=== PATIENT | female | born 1950 | race Caucasian/White ===

== ENCOUNTER → 2023-01-26 | Outpatient (CLI) | payer MEDICARE, OTHER | END | disposition home or self-care (01) | LOC: LABPAT 11:15 | PROVIDERS: ATTEND Orthopaedic Surgery | DX: Z01.812 Encounter for preprocedural laboratory examination (principal); M17.12 Unilateral primary osteoarthritis, left knee; Z22.322 Carrier or suspected carrier of Methicillin resistant Staphylococcus aureus | CPT/HCPCS: 87070 ==

== ENCOUNTER 2023-03-14 07:30 | Observation (INO) | payer MEDICARE, OTHER ==
[2023-03-09 09:36] VITALS: BMI 37.8
--- NOTE | 2023-03-13 08:06 | P.HPOR ---
History of Present Illness H&P Date: 03/13/23 Chief Complaint: Left knee pain The patient is a 72-year-old female who presents with progressive left knee pain for the past 2 years worsening recently. She's having pain with weightbearing activities along with getting up from a seated position. She is having night symptoms. She notes stiffness. She's tried medications in addition to a previous injection without much relief. Review of Systems As per HPI Past Medical History Past Medical History: Diabetes Mellitus, Hyperlipidemia, Hypertension, Osteoarthritis (OA), Thyroid Disorder Additional Past Medical History / Comment(s): current anemia- states pcp instructed her to start iron supplement., states recent low blood sugars in the middle of the night - pt will inform her pcp. History of Any Multi-Drug Resistant Organisms: None Reported Past Surgical History: Appendectomy, Cholecystectomy, Heart Catheterization Additional Past Surgical History / Comment(s): idris carpal tunnel, sinus surgery, colonoscopies, heart cath (4 years ago) Past Anesthesia/Blood Transfusion Reactions: No Reported Reaction Past Psychological History: No Psychological Hx Reported Smoking Status: Former smoker Past Alcohol Use History: Occasional Additional Past Alcohol Use History / Comment(s): quit smoking 28 yrs ago, hx of less than 1 ppd, smoked approx 30 years Past Drug Use History: None Reported - Past Family History Mother Family Medical History: COPD Father Family Medical History: COPD Sister(s) Family Medical History: COPD Medications and Allergies Home Medications Medication Instructions Recorded Confirmed Type Acetaminophen [Tylenol Extra 1,000 mg PO HS PRN 03/09/23 03/09/23 History Strength] Atorvastatin Calcium 40 mg PO MOWEFR 03/09/23 03/09/23 History Cholecalciferol [Vitamin D3 (25 50 mcg PO DAILY 03/09/23 03/09/23 History Mcg = 1000 Iu)] Fish Oil/Dha/Epa [Fish Oil 1,200 1,400 each PO DAILY 03/09/23 03/09/23 History mg Fish Oil] Insulin Detemir [Levemir Flexpen] 60 units SQ HS 03/09/23 03/09/23 History Iron Supplement (Unknown Dose) 1 dose PO DIRECTED 03/09/23 History Levothyroxine Sodium [Synthroid] 0.5 tab PO MOWEFR 03/09/23 03/09/23 History Levothyroxine Sodium [Synthroid] 125 mcg PO SUTUTHSA 03/09/23 03/09/23 History Magnesium 250 mg PO DAILY 03/09/23 03/09/23 History Multivit-Min/Iron/Folic/Lutein 1 each PO DAILY 03/09/23 03/09/23 History [Centrum Silver Women Tablet] Ozempic (Unknown Dose) 1 dose PO BROWNE 03/09/23 History Prasterone (Dhea)/Calcium Carb 1 each PO DAILY 03/09/23 03/09/23 History [Dhea 50 mg Tablet] glipiZIDE 5 mg PO DAILY 03/09/23 03/09/23 History lisinopriL [Zestril] 10 mg PO DAILY 03/09/23 03/09/23 History metFORMIN HCL [Glucophage] 1,000 mg PO DAILY 03/09/23 03/09/23 History Allergies Allergy/AdvReac Type Severity Reaction Status Date / Time cephalexin [From Keflex] Allergy Severe turned red Verified 03/09/23 09:38 all over Sulfa (Sulfonamide Allergy Severe turned red Verified 03/09/23 09:38 Antibiotics) all over grass pollen Allergy Unknown Rash/Hives Verified 03/09/23 09:46 adhesive tape AdvReac blisters Verified 03/09/23 09:38 wood/sap Allergy Unknown Rash/Hives Uncoded 03/09/23 09:46 band aids AdvReac Unknown blisters Uncoded 03/09/23 09:38 Physical Examination - Knee left Appearance: effusion Effusion grade: trace Varus alignment in stance: 5 degrees Tenderness with palpation: anterior, medial Pain: throughout ROM Gait: limping ROM: extension: -10 degrees ROM: flexion: 110 degrees Crepitus with motion: Yes Strength: extension: 5/5 Strength: flexion: 5/5 Meniscal tests: medial meniscal tests: positive, medial joint line pain: positive Results The patient is a well-developed well-nourished female, approximately 5 foot 4, 220 pounds of endomorphic habitus. HEENT exam is nonfocal, neck is supple. She has painless passive motion of her left hip. Straight leg raise is negative. Her distal neurovascular exam appears intact in the left lower extremity. Assessment and Plan Assessment: Left knee severe medial and patellofemoral compartment osteoarthrosis Jrl-[id number]-khdiawosi diabetes ObesityBMI 37.76 Plan: I talked to the patient with regarding her condition along with treatment options. She is having significant pain and limitation secondary to her left knee osteoarthrosis despite conservative measures. After a thorough discussion she opts to proceed with surgery. We'll plan to proceed with left total knee arthroplasty. We will institute DVT prophylaxis postoperatively.
[~2023-03-14 07:30] MED LIST: ACETAMINOPHEN TAB 500 MG TAB PO PRN; DEXAMETHASONE SOD PHOSPHATE 4 MG/ML 1 ML VIAL IV ONE; HYDROmorphone 0.5 MG/0.5 ML SYRINGE IVP PRN; LIDOCAINE 1% (10MG/ML) FOR IV START INTRADERMA PRN; MELOXICAM 7.5 MG TAB PO PRN; ONDANSETRON 4 MG/2 ML VIAL IVP ONE; TRANEXAMIC 1,000 MG/100ML-NACL 1,000 MG in SALINE 1 100ML.BAG IVPB PRN
[2023-03-14 08:44] LABS: Glucose,Whole Blood 116 mg/dL (70-110)
[2023-03-14] MEDS ORDERED: fentaNYL (PF) 50 MCG/ML 2 ML AMP IVP ONE (08:53)
[2023-03-14] MEDS ORDERED: MIDAZOLAM 2 MG/2 ML VIAL IVP ONE (08:53)
[2023-03-14] MEDS: LACTATED RINGERS 1,000 ML IV SCH ×2 (09:12→15:52)
[2023-03-14] MEDS ORDERED: ROPIVACAINE 5 MG/ML 30 ML VIAL ONE (09:13)
[2023-03-14] MEDS ORDERED: TRANEXAMIC 1,000 MG/100ML-NACL PREMIX BAG ONE (09:13)
[2023-03-14] MEDS ORDERED: PHENYLEPHRINE 10 MG/ML VIAL ONE (09:13)
[2023-03-14] MEDS ORDERED: fentaNYL (PF) 50 MCG/ML 2 ML AMP ONE (09:13)
[2023-03-14] MEDS ORDERED: PROPOFOL 10 MG/ML 20 ML VIAL IV ONE (09:13)
[2023-03-14] MEDS ORDERED: MIDAZOLAM 2 MG/2 ML VIAL ONE (09:13)
[2023-03-14] MEDS ORDERED: SODIUM CHLORIDE 0.9% (PF) 10 ML VIAL ONE (09:13)
[2023-03-14] MEDS ORDERED: ROPIVACAINE 1,100 MG, SODIUM CHLORIDE 0.9% 500 ML 330 ML, EMPTY PAIN BALL 1 EACH MISCELLANE PRN ×2 (09:19)
--- NOTE | 2023-03-14 09:21 | P.ANPRN ---
Procedure Note - Anesthesia - Nerve Block Performed Left Adductor Canal Time Out Performed: Yes (08:53) Date of Procedure: 03/14/23 Procedure Start Time: : Procedure Stop Time: :59 Location of Patient: PreOp Indication: Acute Post-Operative Pain, Requested by Surgeon (Dr Nava) Sedation Type: Sedate with meaningful contact maintained Preparation: Sterile Prep, Sterile Dressing Position: Supine Catheter: Indwelling Needle Types: Pajunk Needle Gauge: 21 Ultrasound used to visualize needle placement: Yes Ultrasound used to observe medication spread: Yes Injectate: 0.5% Ropivacaine (see comment for volume) (20cc) Blood Aspirated: No Pain Paresthesia on Injection Noted: No Resistance on Injection: Normal Image Stored and Saved: Yes Events: Uneventful and Well Tolerated
--- NOTE | 2023-03-14 09:54 | P.ANPRN ---
Procedure Note - Anesthesia - Nerve Block Performed Left iPack Date of Procedure: 03/14/23 Procedure Start Time: 08:30 Procedure Stop Time: 08:34 Location of Patient: PreOp Indication: Acute Post-Operative Pain, Requested by Surgeon (Dr Nava) Sedation Type: Sedate with meaningful contact maintained Preparation: Sterile Prep Position: Supine Catheter: None Needle Types: Pajunk Needle Gauge: 21 Ultrasound used to visualize needle placement: Yes Ultrasound used to observe medication spread: Yes Injectate: 0.5% Ropivacaine (see comment for volume) (15cc +5cc PF Normal saline) Blood Aspirated: No Pain Paresthesia on Injection Noted: No Resistance on Injection: Normal Image Stored and Saved: Yes Events: Uneventful and Well Tolerated
[2023-03-14] MEDS ORDERED: ceFAZolin 1,000 MG in SODIUM CHLORIDE 0.9% 1,000 ML IRRIGATION ONE (10:03)
[2023-03-14] MEDS ORDERED: LACTATED RINGERS 1,000 ML IV ONE (10:30)
[2023-03-14] MEDS ORDERED: NALOXONE 0.4 MG/ML 1 ML VIAL IV PRN (11:15)
[2023-03-14] MEDS ORDERED: MAGNESIUM HYDROXIDE 2,400 MG/30 ML CUP PO PRN (11:15)
[2023-03-14] MEDS ORDERED: HYDROcodone/APAP 5-325MG 1 EACH TAB PO PRN (11:15)
[2023-03-14] MEDS ORDERED: HYDROmorphone 0.5 MG/0.5 ML SYRINGE IVP PRN (11:15)
[2023-03-14 11:34] LABS: Glucose,Whole Blood 124 mg/dL (70-110)
--- NOTE | 2023-03-14 11:34 | P.OP ---
Date of Procedure: 03/14/23 Preoperative Diagnosis: Left knee severe tricompartmental osteoarthrosis Postoperative Diagnosis: Same Procedure(s) Performed: Left total knee arthroplastycementedcruciate retaining Implants: Depuy Attune size 6 narrow cemented femoral component, size 5 cemented tibial component, 11 mm articular surface, 35 mm cemented patellar component. This is a cruciate retaining implant. Anesthesia: regional, spinal Surgeon: Paramjit Nava Relief Cook #1: Curly Cox Estimated Blood Loss (ml): 50 Pathology: other (Bone fragments) Condition: stable Disposition: PACU Indications for Procedure: The patient is a 72-year-old female who presents with progressive left knee pain secondary osteoarthrosis despite conservative measures. A discussion of the risks and benefits of operative intervention versus continued conservative measures was made with patient. She opted to proceed with surgery. Operative risks to include infection, neurovascular injury, development of blood clots, fracture, possible component loosening/failure and need for subsequent procedures was discussed. Informed consent was obtained. Operative Findings: As below Description of Procedure: The patient was brought to the operating room, and after induction of spinal anesthesia the left lower extremity was prepped and draped in a normal fashion. The tourniquet was inflated to 270 mmHg. A longitudinal incision extending 3 finger breaths above the superior pole of the patella extending to the medial aspect the tibial tubercle was then made. The skin and subcutaneous tissues were divided sharply. Electrocautery was used for hemostasis. A medial parapatellar arthrotomy was then performed. The medial soft tissues to include the superficial and deep portions of the medial collateral ligament as well as the medial hamstring tendons were elevated subperiosteally. The proximal medial tibia osteophytes were carefully removed. The patella was everted. The knee was flexed. A portion of the retropatellar fat pad was excised sharply. The anterior cruciate ligament was sacrificed. A starting hole was made in the distal femur 1 cm anterior to the posterior cruciate origin. An intramedullary femoral guide was gently inserted planning on 5 valgus distal cut with 9 mm distal resection. The cutting block was pinned in place. The distal cut was then made. The posterior referencing sizing guide was utilized. 3 of external rotation was built into the system and verified off the trans- epicondylar axis and the posterior condyles. I felt size 6 narrow was most appropriate. The cutting block was pinned in place. The anterior, posterior, and chamfer cuts were then made. The bone fragments were removed. A sulcus cut was then made with the appropriate guide. The trial size 6 narrow femoral component was then placed and was fully seated. There was good anterior to posterior and medial to lateral fit. The distal peg holes were then drilled. The trial component was then removed. Attention was then paid towards preparing the proximal tibia. An extra medullary guide was utilized in line with the tibial shaft and second metatarsal distally. A 7 posterior slope was planned. I planned on 2 mm resection from the medial compartment. The cutting block was pinned in place. The proximal tibial cut was then made. The bone was removed in one fragment. The remnants of the medial and lateral menisci were excised the capsule junction with electrocautery. The tibia sized most appropriately at size 5. The posterior osteophytes off the distal femur were carefully removed with a curved osteotome. The trial tibial and femoral components were placed along with a 11 millimeters articular surface. I was able to obtain full flexion and extension with good stability with varus and valgus stress. After several flexion and extension cycles, the tibial rotation was marked with electrocautery in line with the medial one third of the tibial tubercle. Attention was then paid towards preparing the patella. A patella reamer was utilized taking this down to 14 mm of bone stock. A good flush cut was made. The patella sized most appropriately at 11 millimeters. The peg holes were then drilled. The trial component was placed. The knee was taken through a range of motion. I had good patellofemoral tracking with no hands technique. The trial components were then removed. The tibia was prepared in the appropriate rotation with appropriate drill and keel punch. The flexion and extension gaps were checked and felt to be symmetric. The bony surfaces were prepared with pulsatile lavage and dried. The deep tibial component was then cemented in place and was fully seated. Excess cement was removed. The femoral component was cemented in place and was fully seated. Again excess cement was removed. The trial 11 millimeters surface was then inserted in the knee was put in full extension. The patella component was cemented in place. After the cement had sufficiently hardened, the knee was again taken through a range of motion. Again there was good stability in flexion and extension with varus and valgus stress. The trial articular surface was then removed. The final articular surface was placed and was impacted. Care was taken to avoid any soft tissue interposition. Pulsatile lavage was again utilized. The tourniquet was deflated with approximately 60 minutes total tourniquet time. There was minimal drainage therefore a deep drain was not placed. The medial parapatellar arthrotomy was then closed with #2 Ethibond suture. The subcutaneous tissues were reapproximated interrupted 2-0 Vicryl sutures. The skin was reapproximated with 3-0 subarticular strata fix suture. Skin tape and adhesive was applied. A sterile dressing was applied. The patient was then awoken from sedation and transferred to recovery room in good condition. Blood loss was estimated at 50 milliliters. No complications were incurred. Sponge and needle counts were correct at the end the case. Curly VELASQUEZ assisted during the major components this case to include exposure, bone resection, and implantation.
--- NOTE | 2023-03-14 11:52 | XR ---
EXAMINATION TYPE: XR knee limited LT DATE OF EXAM: 03/14/2023 CLINICAL HISTORY: Postoperative evaluation Two views of the left knee are submitted. Identified are changes of total knee arthroplasty with fem oral and tibial components appearing well seated. Postsurgical soft tissue changes are noted. Align ment is anatomic.
[2023-03-14] MEDS: HYDROmorphone 0.5 MG/0.5 ML SYRINGE IVP PRN ×2 (15:53→23:19)
[2023-03-14 16:56] LABS: Glucose,Whole Blood 210 mg/dL (70-110)
[2023-03-14] MEDS ORDERED: DEXTROSE 50% SYRINGE 50 ML IVP PRN ×2 (19:20)
[2023-03-14] MEDS ORDERED: LEVOTHYROXINE 125 MCG TAB PO SCH (19:30)
[2023-03-14 20:32] LABS: Glucose,Whole Blood 327 mg/dL (70-110)
[2023-03-14] MEDS: INSULIN ASPART (NovoLOG) 100 UNIT/ML VIAL SQ SCH (21:00)
[2023-03-14] MEDS ORDERED: INSULIN DETEMIR (LEVEMIR) 100 UNIT/ML SYR SQ SCH ×2 (21:00→23:27)
[2023-03-14] MEDS: HYDROcodone/APAP 7.5-325MG 1 EACH TAB PO PRN (21:01)
[2023-03-14] MEDS: SENNOSIDES-DOCUSATE SODIUM 1 EACH TAB PO SCH (21:01)
[2023-03-15] MEDS: HYDROmorphone 0.5 MG/0.5 ML SYRINGE IVP PRN ×3 (05:12→18:27)
[2023-03-15 05:42] LABS: Glucose,Whole Blood 257 mg/dL (70-110)
[2023-03-15] MEDS: INSULIN ASPART (NovoLOG) 100 UNIT/ML VIAL SQ SCH ×4 (06:31→20:27)
--- NOTE | 2023-03-15 07:17 | P.PN ---
Progress Note - Text Progress Note Date: 03/15/23 Postoperative day # 1 status post total knee arthroplasty, and adductor canal catheter placed for postoperative analgesia, currently at ropivacaine 0.2% 8 mL per hour and continuous infusion, visual analogue scale is 8/10, patient using oral pain medication for breakthrough pain. Assessment and plan= Acute postoperative pain, adductor canal catheter for pain control, pain is not well controlled , lidocaine 1% 10 ML given through the catheter, and will evaluate the patient pain later on to see if this helps or not, if she continued to have pain , then will discuss with the patient the option of replacing the adductor canal cath
[2023-03-15 09:22] LABS: Basophils # (A) 0.03 X 10*3/uL (0.00-0.10); Basophils % (A) 0.3 %; Eosinophils # (A) 0.02 X 10*3/uL (0.04-0.35); Eosinophils % (A) 0.2 %; HGB 11.2 d/dL (12.0-15.0); Lymphocytes # (A) 1.93 X 10*3/uL (0.90-5.00); Lymphocytes % (A) 19.3 %; MCH 25.2 pg (27.0-32.0); MCHC 31.1 d/dL (32.0-37.0); MCV 81.1 FL (80.0-97.0); Mean Platelet Volume 10.8 FL (9.5-12.2); NRBC Per 100 WBC 0 X 10*3/uL (0.00-0.01); Neutrophils # (A) 6.96 X 10*3/uL (1.80-7.70); Neutrophils % (A) 69.7 %; Platelet Count 185 X 10*3/uL (140-440); RBC 4.44 X 10*6/uL (4.10-5.20); RDW 14.7 % (11.5-14.5); WBC 9.99 X 10*3/uL (4.50-10.00)
[2023-03-15] MEDS: HYDROcodone/APAP 7.5-325MG 1 EACH TAB PO PRN ×3 (09:37→20:28)
[2023-03-15] MEDS: lisinopriL 10 MG TAB PO SCH (10:15)
[2023-03-15] MEDS: CHOLECALCIFEROL 25 MCG (1000 IU) TABLET PO SCH (10:16)
[2023-03-15] MEDS: glipiZIDE 5 MG TAB PO SCH (10:16)
[2023-03-15] MEDS: RIVAROXABAN 10 MG TAB PO SCH (10:16)
[2023-03-15 10:48] LABS: Glucose,Whole Blood 333 mg/dL (70-110)
--- NOTE | 2023-03-15 12:27 | P.PN ---
Subjective Progress Note Date: 03/15/23 Principal diagnosis: Status post left total knee arthroplasty Patient evaluated today at bedside, she is resting in her hospital bed, her is present bedside. She does admit to some increasing pain, she has been utilizing IV Dilaudid. She denies any headaches, lightheadedness, chest pain or shortness of breath. She was able to ambulate with physical therapy with minimal difficulty. Objective - Vital Signs Vital signs: Vital Signs Temp 98.5 F 03/15/23 07:28 Pulse 76 03/15/23 07:28 Resp 16 03/15/23 07:28 BP 129/67 03/15/23 07:28 Pulse Ox 95 03/15/23 07:28 FiO2 Intake & Output 03/14/23 03/15/23 03/15/23 18:59 06:59 18:59 Intake Total 1751 Output Total 50 Balance 1701 Weight 101.1 kg Intake: IV 1751 Output: Estimated Blood Loss 50 Other: Voiding Method Toilet # Voids 1 1 - Exam Left Lower extremity: Incision is clean, dry, and intact. The exofin fusion tape is in good condition. There is minimal soft tissue swelling and ecchymosis surrounding the medial and lateral aspects of the incision. Calf is soft, no tenderness with palpation. Plantar flexion, dorsiflexion, EHL, FHL are intact. Sensory exam to light touch throughout the extremity is intact, dorsal pedis pulses 2+. - Labs CBC & Chem 7: 03/15/23 05:37 Labs: Abnormal Lab Results - Last 24 Hours (Table) 03/14/23 03/14/23 03/15/23 Range/Units 16:54 20:31 05:37 Hgb (12.0-15.0) d/dL Hct (37.2-46.3) % MCH (27.0-32.0) pg MCHC (32.0-37.0) d/dL RDW (11.5-14.5) % Eosinophils # (0.04-0.35) X 10*3/uL POC Glucose (mg/dL) 210 H 327 H (70-110) mg/dL Hemoglobin A1c 7.8 H (<=6.0) % 03/15/23 03/15/23 03/15/23 Range/Units 05:37 05:41 10:46 Hgb 11.2 L (12.0-15.0) d/dL Hct 36.0 L (37.2-46.3) % MCH 25.2 L (27.0-32.0) pg MCHC 31.1 L (32.0-37.0) d/dL RDW 14.7 H (11.5-14.5) % Eosinophils # 0.02 L (0.04-0.35) X 10*3/uL POC Glucose (mg/dL) 257 H 333 H (70-110) mg/dL Hemoglobin A1c (<=6.0) % Assessment and Plan Assessment: Postoperative day #1 status post left total knee arthroplasty Plan: Pain control, continue with oral medications. Okay to use Dilaudid for breakthrough pain DVT prophylaxis, continue Xarelto 10 mg daily Wound care instructions discussed, this including icing and elevating along with showering Continue On-Q pain catheter Encourage incentive spirometer Medical recommendations Discharge planning: We'll keep patient in hospital additional night for pain control, plan for discharge to home with home healthcare on 03/16/2023 Time with Patient: Less than 30
--- NOTE | 2023-03-15 14:03 | P.CONS ---
History of Present Illness - Reason for Consult Consult date: 03/15/23 Medical management, postop left knee arthroplasty - History of Present Illness This is a pleasant 72-year-old female who was admitted under orthopedic services and underwent left total knee arthroplasty postop day 1. Patient is having extreme amount of pain and has been using only oral medications and does have as needed Dilaudid for severe pain. Patient reports she follows with Dr. Sanford's physician litigation legal assistant Tala in the outpatient setting with a past medical history of hypothyroidism, diabetes mellitus, hyperlipidemia, hypertension, osteoarthritis, former smoker and occasionally uses alcohol socially and denies any other illicit drug use. Patient reports she went to her primary care provider's office for presurgical clearance. Follow-up labs show a hemoglobin A1c of 7.8, blood sugar slightly elevated and CBC within normal limits. Patient is afebrile denies chest pain or shortness of breath. Patient reports she received IV Dilaudid short time ago as having some shivering. Patient is afebrile denies chest pain or shortness of breath. Patient denies any burning or pain with frequency with urination and is urinating no difficulties. Patient is passing gas but has not had a bowel movement yet. Patient did tolerate her breakfast today. Review Of Systems: Constitutional: No fever, no chills, no night sweats. No weight change. No weakness, fatigue or lethargy. No daytime sleepiness. EENT: No headache. No blurred vision or double vision, no loss of vision. No loss of Hearing, no ringing in the ears, no dizziness. No nasal drainage or congestion. No epistaxis. No sore throat. Lungs: No shortness of breath, cough, no sputum production. No wheezing. Cardiovascular: No chest pain, no lower extremity edema. No palpitations. No paroxysmal nocturnal dyspnea. No orthopnea. No lightheadedness or dizziness. No syncopal episodes. Abdominal: No abdominal pain. No nausea, vomiting. No diarrhea. No constipation. No bloody or tarry stools.. No loss of appetite. Genitourinary: No dysuria, increased frequency, urgency. No urinary retention. Musculoskeletal: No myalgias. No muscle weakness, no gait dysfunction, no frequent falls. No back pain. No neck pain. Reports left knee pain Integumentary: No wounds, no lesions. No rash or pruritus. No unusual bruising. No change in hair or nails. Neurologic: No aphasia. No facial droop. No change in mentation. No head injury. No headache. No paralysis. No paresthesia. Psychiatric: No depression. No anxiety. No mood swings. Endocrine: No abnormal blood sugars. No weight change. No excessive sweating or thirst. No cold intolerance. PHYSICAL EXAMINATION: GENERAL: The patient is alert and oriented x4, Well developed, well nourished. Obese HEENT: Pupils are round and equally reacting to light. EOMI. no scleral icterus. No conjunctival pallor. Normocephalic, atraumatic. No pharyngeal erythema. No thyromegaly. CARDIOVASCULAR: S1 and S2 muffled PULMONARY: diminished breath sounds bilaterally with no wheezing or rhonchi noted. ABDOMEN: soft. Nontender on exam. obese. non-distended, normoactive bowel sounds. No palpable organomegaly. MUSCULOSKELETAL: No joint swelling or deformity. EXTREMITIES: No cyanosis, clubbing, or pedal edema. left knee surgical site is dry and intact with ice packs with some swelling and no significant erythema noted NEUROLOGICAL: Gross neurological examination did not reveal any focal deficits. Diffuse weakness SKIN: No rashes. Assessment: Status post left total knee arthroplasty History of diabetes mellitus, type II, insulin-dependent Osteoarthritis history Hypertension history Hyperlipidemia Hypothyroidism Former smoker Obesity with BMI of 38.3 GI prophylaxis DVT prophylaxis Full code Plan: Patient is status post left total knee arthroplasty and was able to work with physical therapy today having some increased pain still requiring IV pain medi cations and will be held overnight for pain control per orthopedics. Patient with incentive spirometer at bedside encourage the patient to continue using at least 10 times every hour while awake Continue on sliding scale and Accu-Cheks before meals and at bedtime Home medications reviewed and resumed as appropriate Encouraged to increase activity as tolerated We will continue to follow with orthopedics during hospitalization. Thank you kindly for this consultation. Discussing possible discharge home with home care in 24 hours. The impression and plan of care has been dictated by Natalie Traylor, nurse practitioner as directed. Dr. Anca MD I have performed a history and examination and MDM of this patient, discussed the same with the dictator, and agree with the dictator's assessment and plan as written ,documented as a scribe. Based on total visit time, I have performed more than 50% of the visit. Any additional findings or plans will be noted. Past Medical History Past Medical History: Diabetes Mellitus, Hyperlipidemia, Hypertension, Osteoarthritis (OA), Thyroid Disorder Additional Past Medical History / Comment(s): current anemia- states pcp instructed her to start iron supplement., states recent low blood sugars in the middle of the night - pt will inform her pcp. History of Any Multi-Drug Resistant Organisms: None Reported Past Surgical History: Appendectomy, Cholecystectomy, Heart Catheterization, Joint Replacement Additional Past Surgical History / Comment(s): idris carpal tunnel, sinus surgery, colonoscopies, heart cath (4 years ago) Past Anesthesia/Blood Transfusion Reactions: No Reported Reaction Past Psychological History: No Psychological Hx Reported Smoking Status: Former smoker Past Alcohol Use History: Occasional Additional Past Alcohol Use History / Comment(s): quit smoking 28 yrs ago, hx of less than 1 ppd, smoked approx 30 years Past Drug Use History: None Reported - Past Family History Mother Family Medical History: COPD Father Family Medical History: COPD Sister(s) Family Medical History: COPD Medications and Allergies Home Medications Medication Instructions Recorded Confirmed Type Acetaminophen [Tylenol Extra 1,000 mg PO HS PRN 03/09/23 03/09/23 History Strength] Atorvastatin Calcium 40 mg PO MOWEFR 03/09/23 03/09/23 History Cholecalciferol [Vitamin D3 (25 50 mcg PO DAILY 03/09/23 03/09/23 History Mcg = 1000 Iu)] Fish Oil/Dha/Epa [Fish Oil 1,200 1,400 each PO DAILY 03/09/23 03/09/23 History mg Fish Oil] Insulin Detemir [Levemir Flexpen] 60 units SQ HS 03/09/23 03/09/23 History Iron Supplement (Unknown Dose) 1 dose PO DIRECTED 03/09/23 03/14/23 History Levothyroxine Sodium [Synthroid] 0.5 tab PO MOWEFR 03/09/23 03/09/23 History Levothyroxine Sodium [Synthroid] 125 mcg PO SUTUTHSA 03/09/23 03/09/23 History Magnesium 250 mg PO DAILY 03/09/23 03/09/23 History Multivit-Min/Iron/Folic/Lutein 1 each PO DAILY 03/09/23 03/09/23 History [Centrum Silver Women Tablet] Ozempic (Unknown Dose) 1 dose PO BROWNE 03/09/23 03/14/23 History Prasterone (Dhea)/Calcium Carb 1 each PO DAILY 03/09/23 03/09/23 History [Dhea 50 mg Tablet] glipiZIDE 5 mg PO DAILY 03/09/23 03/09/23 History lisinopriL [Zestril] 10 mg PO DAILY 03/09/23 03/09/23 History metFORMIN HCL [Glucophage] 1,000 mg PO DAILY 03/09/23 03/09/23 History Allergies Allergy/AdvReac Type Severity Reaction Status Date / Time cephalexin [From Keflex] Allergy Severe turned red Verified 03/14/23 08:11 all over Sulfa (Sulfonamide Allergy Severe turned red Verified 03/14/23 08:11 Antibiotics) all over grass pollen Allergy Unknown Rash/Hives Verified 03/14/23 08:11 adhesive tape AdvReac blisters Verified 03/14/23 08:11 wood/sap Allergy Unknown Rash/Hives Uncoded 03/14/23 08:11 band aids AdvReac Unknown blisters Uncoded 03/14/23 08:11 Physical Exam Vitals: Vital Signs Temp Pulse Pulse Resp BP BP Pulse Ox 03/15/23 07:28 98.5 F 76 16 129/67 95 03/15/23 01:35 98.1 F 75 18 118/69 94 L 03/14/23 19:40 97.8 F 97 18 122/52 97 03/14/23 14:03 97.9 F 71 18 149/80 99 03/14/23 13:45 70 18 156/72 99 03/14/23 13:15 69 15 137/67 100 03/14/23 13:00 62 17 139/65 97 03/14/23 12:45 62 15 139/65 95 03/14/23 12:30 62 16 147/70 95 03/14/23 12:09 63 16 139/66 95 03/14/23 11:54 60 16 150/63 100 03/14/23 11:39 60 16 142/66 100 03/14/23 11:24 97.4 F L 64 16 131/60 99 Intake and Output 03/14/23 03/15/23 03/15/23 22:59 06:59 14:59 Other: Voiding Method Toilet # Voids 1 1 Weight 101.1 kg Results CBC & Chem 7: 03/15/23 05:37 Labs: Abnormal Lab Results - Last 24 Hours (Table) 03/14/23 03/14/23 03/14/23 Range/Units 11:31 16:54 20:31 POC Glucose (mg/dL) 124 H 210 H 327 H (70-110) mg/dL 03/15/23 Range/Units 05:41 POC Glucose (mg/dL) 257 H (70-110) mg/dL
[2023-03-15 16:55] LABS: Glucose,Whole Blood 225 mg/dL (70-110)
[2023-03-15] MEDS ORDERED: LEVOTHYROXINE 125 MCG TAB PO SCH (19:17)
[2023-03-15] MEDS ORDERED: ATORVASTATIN 40 MG TAB PO SCH (19:17)
[2023-03-15 20:21] LABS: Glucose,Whole Blood 267 mg/dL (70-110)
[2023-03-15] MEDS: SENNOSIDES-DOCUSATE SODIUM 1 EACH TAB PO SCH (20:28)
[2023-03-15] MEDS ORDERED: INSULIN DETEMIR (LEVEMIR) 100 UNIT/ML SYR SQ SCH (21:00)
[2023-03-15] MEDS: LACTATED RINGERS 1,000 ML IV SCH (21:37)
[2023-03-16] MEDS: HYDROmorphone 0.5 MG/0.5 ML SYRINGE IVP PRN ×2 (00:32→08:49)
[2023-03-16] MEDS: HYDROcodone/APAP 7.5-325MG 1 EACH TAB PO PRN ×2 (05:20→13:12)
[2023-03-16 05:54] LABS: Glucose,Whole Blood 211 mg/dL (70-110)
[2023-03-16] MEDS: INSULIN ASPART (NovoLOG) 100 UNIT/ML VIAL SQ SCH ×2 (06:21→11:57)
[2023-03-16 07:57] VITALS: RESP 15
[2023-03-16] MEDS: CHOLECALCIFEROL 25 MCG (1000 IU) TABLET PO SCH (08:56)
[2023-03-16] MEDS: lisinopriL 10 MG TAB PO SCH (08:57)
[2023-03-16] MEDS: glipiZIDE 5 MG TAB PO SCH (08:57)
[2023-03-16] MEDS: RIVAROXABAN 10 MG TAB PO SCH (08:57)
--- NOTE | 2023-03-16 09:30 | P.PN ---
Progress Note - Text Progress Note Date: 03/16/23 The patient is postop day #2 status post left total knee replacement. She has an revenue field auditor canal catheter. She complains of anterior and posterior pain around the left knee. Skin entry site around the additive Catheter looks normal with no signs of infection. Continue pain control by a combination of infusion through the Adductor canal catheter and oral/ IV medications for pain.
--- NOTE | 2023-03-16 10:24 | P.PN ---
Subjective Progress Note Date: 03/16/23 Principal diagnosis: Status post left total knee arthroplasty Patient evaluated today at bedside, she is resting in her hospital bed. Patient is doing a little bit better today with pain control. She denies any headaches, lightheadedness, chest pain or shortness of breath. She was able to ambulate with physical therapy with minimal difficulty. Objective - Vital Signs Vital signs: Vital Signs Temp 98.6 F 03/16/23 07:57 Pulse 82 03/16/23 07:57 Resp 15 03/16/23 07:57 BP 148/71 03/16/23 07:57 Pulse Ox 94 L 03/16/23 07:57 FiO2 Intake & Output 03/15/23 03/16/23 03/16/23 18:59 06:59 18:59 Intake Total 240 Balance 240 Intake: Oral 240 Other: Voiding Method Toilet # Voids 3 - Exam Left Lower extremity: Incision is clean, dry, and intact. The exofin fusion tape is in good condition. There is minimal soft tissue swelling and ecchymosis surrounding the medial and lateral aspects of the incision. Calf is soft, no tenderness with palpation. Plantar flexion, dorsiflexion, EHL, FHL are intact. Sensory exam to light touch throughout the extremity is intact, dorsal pedis pulses 2+. - Labs CBC & Chem 7: 03/15/23 05:37 Labs: Abnormal Lab Results - Last 24 Hours (Table) 03/15/23 03/15/23 03/15/23 Range/Units 10:46 16:54 20:19 POC Glucose (mg/dL) 333 H 225 H 267 H (70-110) mg/dL 03/16/23 Range/Units 05:52 POC Glucose (mg/dL) 211 H (70-110) mg/dL Assessment and Plan Assessment: Postoperative day #2 status post left total knee arthroplasty Plan: Pain control, plan for discharge home on [place] 7.5 mg/325 mg DVT prophylaxis, continue Xarelto 10 mg daily Wound care instructions discussed, this including icing and elevating along with showering Remove pain catheter prior to discharge Encourage incentive spirometer Medical recommendations Discharge planning: stable for discharge home today Time with Patient: Less than 30
--- NOTE | 2023-03-16 10:28 | P.DS ---
Providers Date of admission: 03/15/23 12:30 Expected date of discharge: 03/16/23 Attending physician: Paramjit Nava Consults: 03/14/23 11:18 Consult Physician Routine Consulting Provider: Tee Jolly Consult Reason/Comments: Medical Management s/p left total knee arthroplasty Do you want consulting provider notified?: Yes Primary care physician: Tamiko Sanford Hospital Course: Date of admission: 03/14/2023 Date of discharge: 03/16/2023 Admission diagnosis: Status post left total knee arthroplasty Discharge diagnosis: Same Attending physician: Dr. Nava Surgical procedures: Brief history: Patient is a a 72-year-old female with a history of progressive primary left knee osteoarthritis. At this point patient has failed conservative treatment measures and has opted to proceed with a elective left total knee arthroplasty. Hospital course: Details of patient's surgery can be found in operative report. Patient tolerated the procedure well and was subsequently transported to orthopedic floor. Patient's orthopeidc and medical care was provided daily. Patient had daily laboratory tests performed for evaluation of overall blood counts. Patient had daily physical therapy to include strengthening range of motion as well as education with walker ambulation. Patient was treated with Xarelto for their postoperative DVT prophylaxis during their inpatient stay. Patient was noted to have a relatively uneventful postoperative course. Patient reported satisfactory pain control with oral pain medications by postoperative day 2. Patient showed satisfactory progress with physical therapy. Patient moved steadily through the program and had no difficulty meeting the goals by postoperative day 2. Given patient's otherwise satisfactory course and having met physical therapy goals, plan is to discharge patient home on postoperative day 2. Discharge condition/disposition: Patient will be discharged home in stable condition. Discharge medications: Instructions are given on resumption of patient's normal daily medications per primary care recommendation, in addition patient will be prescribed [place] 7.5 mg/325 mg. Discharge instructions: 1. Wound care and infection precautions, keep incision dry and covered while showering, no lotions, creams, moisturizers. No soaking, tubs, pools, hottubs. Do not scrub over the incision. 2. Weight-bear with walker / cane until follow-up. 3. Ice and elevate when necessary. Do not exceed 20 minutes per hour with ice pack. 4. Utilize compression sleeve until seen at first follow up appointment. 5. Visiting nursing care. 6. Home physical therapy including home CPM. 7. Pain meds and anticoagulants per prescription. 8. Pain medication has potential to cause constipation. Increase oral fluid and fiber intake. Contact primary care provider if you have not had a bowel movement within 48 hours after discharge 9. No anti-inflammatory medication until discussed at first post operative visit, this including Motrin, Aleve, Mobic, Diclofenac. 10. Follow up in office at 2 weeks postop with Jett Corona PA-C/Curly Garcia 11. Follow up with your primary care doctor 7-10 days after discharge. 12. Contact [facility] with any questions, . Procedures: Left total knee arthroplasty Patient Condition at Discharge: Good Plan - Discharge Summary Discharge Rx Participant: Yes New Discharge Prescriptions: New HYDROcodone/APAP 7.5-325MG [[place] 7.5] 1 each PO Q4HR PRN #42 tab PRN Reason: Pain Continue Levothyroxine Sodium [Synthroid] 125 mcg PO SUTUTHSA Atorvastatin Calcium 40 mg PO MOWEFR Insulin Detemir [Levemir Flexpen] 60 units SQ HS Magnesium 250 mg PO DAILY Multivit-Min/Iron/Folic/Lutein [Centrum Silver Women Tablet] 1 each PO DAILY Levothyroxine Sodium [Synthroid] 0.5 tab PO MOWEFR Cholecalciferol [Vitamin D3 (25 Mcg = 1000 Iu)] 50 mcg PO DAILY Iron Supplement (Unknown Dose) 1 dose PO DIRECTED metFORMIN HCL [Glucophage] 1,000 mg PO DAILY lisinopriL [Zestril] 10 mg PO DAILY glipiZIDE 5 mg PO DAILY Prasterone (Dhea)/Calcium Carb [Dhea 50 mg Tablet] 1 each PO DAILY Fish Oil/Dha/Epa [Fish Oil 1,200 mg Fish Oil] 1,400 each PO DAILY Acetaminophen [Tylenol Extra Strength] 1,000 mg PO HS PRN PRN Reason: Pain Ozempic (Unknown Dose) 1 dose PO BROWNE Discharge Medication List Acetaminophen [Tylenol Extra Strength] 1,000 mg PO HS PRN 03/09/23 [History] Atorvastatin Calcium 40 mg PO MOWEFR 03/09/23 [History] Cholecalciferol [Vitamin D3 (25 Mcg = 1000 Iu)] 50 mcg PO DAILY 03/09/23 [History] Fish Oil/Dha/Epa [Fish Oil 1,200 mg Fish Oil] 1,400 each PO DAILY 03/09/23 [History] Insulin Detemir [Levemir Flexpen] 60 units SQ HS 03/09/23 [History] Iron Supplement (Unknown Dose) 1 dose PO DIRECTED 03/09/23 [History] Levothyroxine Sodium [Synthroid] 0.5 tab PO MOWEFR 03/09/23 [History] Levothyroxine Sodium [Synthroid] 125 mcg PO SUTUTHSA 03/09/23 [History] Magnesium 250 mg PO DAILY 03/09/23 [History] Multivit-Min/Iron/Folic/Lutein [Centrum Silver Women Tablet] 1 each PO DAILY 03/09/23 [History] Ozempic (Unknown Dose) 1 dose PO BROWNE 03/09/23 [History] Prasterone (Dhea)/Calcium Carb [Dhea 50 mg Tablet] 1 each PO DAILY 03/09/23 [History] glipiZIDE 5 mg PO DAILY 03/09/23 [History] lisinopriL [Zestril] 10 mg PO DAILY 03/09/23 [History] metFORMIN HCL [Glucophage] 1,000 mg PO DAILY 03/09/23 [History] HYDROcodone/APAP 7.5-325MG [[place] 7.5] 1 each PO Q4HR PRN #42 tab 03/16/23 [Rx] Follow up Appointment(s)/Referral(s): Curly Cox, ROSEY [PHYSICIAN AS400 DEVELOPER] - 03/30/23 8:50 am [facility],Equipment [NON-STAFF] - As Needed (Continuous Passive Motion knee machine) [facility], [NON-STAFF] - As Needed Patient Instructions/Handouts: Knee Replacement (DC) Activity/Diet/Wound Care/Special Instructions: Orthopedic Discharge Instructions: 1. Wound care and infection precautions, keep incision dry and covered while showering, no lotions, creams, moisturizers. No soaking, pools, hot tubs. Do not scrub over incision. 2. Weight-bear as tolerated with walker / cane until follow-up. 3. Ice and elevate when necessary. Do not exceed 20 minutes per hour with ice pack. 4. Utilize compression sleeve until seen at first follow up appointment. 5. Pain meds and anticoagulants per prescription. 6. Pain medication has potential to cause constipation. Increase oral fluid and fiber intake. Contact primary care provider if you have not had a bowel movement within 48 hours after discharge. 7. No anti-inflammatory medication until discussed at first post operative visit, this including Motrin, Aleve, Mobic, Diclofenac. 8. Follow up in office at 2 weeks postop with Jett Corona PA-C / Curly Cox PA-C 9. Follow up with your primary care doctor 7-10 days after discharge. 10. Contact [facility] with any questions, . Keep incision clean, dry, intact. While showering, cover incision with Saran wrap. Keep fusion tape on until follow-up appointment in office in 2 weeks Discharge Disposition: HOME WITH HOME HEALTH SERVICES
[2023-03-16 11:20] LABS: Glucose,Whole Blood 253 mg/dL (70-110)
[2023-03-16 13:51] VITALS: BP 134/61; PULSE 91; TEMP 98.5
--- NOTE | 2023-03-17 15:32 | P.PN ---
Subjective Progress Note Date: 03/16/23 - Reason for Consult Consult date: 03/15/23 Medical management, postop left knee arthroplasty - History of Present Illness This is a pleasant 72-year-old female who was admitted under orthopedic services and underwent left total knee arthroplasty postop day 1. Patient is having extreme amount of pain and has been using only oral medications and does have as needed Dilaudid for severe pain. Patient reports she follows with Dr. Arron roca's physician diet assistant Tala in the outpatient setting with a past medical history of hypothyroidism, diabetes mellitus, hyperlipidemia, hypertension, osteoarthritis, former smoker and occasionally uses alcohol socially and denies any other illicit drug use. Patient reports she went to her primary care provider's office for presurgical clearance. Follow-up labs show a hemoglobin A1c of 7.8, blood sugar slightly elevated and CBC within normal limits. Patient is afebrile denies chest pain or shortness of breath. Patient reports she received IV Dilaudid short time ago as having some shivering. Patient is afebrile denies chest pain or shortness of breath. Patient denies any burning or pain with frequency with urination and is urinating no difficulties. Patient is passing gas but has not had a bowel movement yet. Patient did tolerate her breakfast today. 03/16/2023 Patient is seen and evaluated in follow-up today status post left total knee arthroplasty pain is better managed today. Patient did require 1 dose of IV pain medications although has been increased on oral and plans on going home today. All medications have been reviewed and resumed and patient to resume bl ood pressure medications. Patient denies any chest pain, shortness of breath, or palpitations. Patient is afebrile. Patient is tolerating diet with no reports of nausea or vomiting noted. Plans are for Homecare patient does have support at home. Patient with incentive spirometer at the bedside encourage the patient to take home and continue using at least 10 times every hour while awake. Patient is medically stable for discharge today and instructed to follow-up with orthopedics as well as her primary care provider in the outpatient setting. Review of systems: Constitutional: No reports of fatigue, fever, or chills Cardiovascular: No reports of chest pain or palpitations Respiratory: No reports of shortness of breath or cough GI: No reports of nausea, vomiting, or diarrhea : No reports of dysuria or retention Neurovascular: reports of generalized weakness and some continued left knee pain All medications have been reviewed PHYSICAL EXAMINATION: GENERAL: The patient is alert and oriented x4, Well developed, well nourished. Obese HEENT: Pupils are round and equally reacting to light. EOMI. no scleral icterus. No conjunctival pallor. Normocephalic, atraumatic. No pharyngeal erythema. No thyromegaly. CARDIOVASCULAR: S1 and S2 muffled PULMONARY: diminished breath sounds bilaterally with no wheezing or rhonchi noted. ABDOMEN: soft. Nontender on exam. obese. non-distended, normoactive bowel sounds. No palpable organomegaly. MUSCULOSKELETAL: No joint swelling or deformity. EXTREMITIES: No cyanosis, clubbing, or pedal edema. left knee surgical site is dry and intact with ice packs with some swelling and no significant erythema noted NEUROLOGICAL: Gross neurological examination did not reveal any focal deficits. Diffuse weakness SKIN: No rashes. Assessment: Status post left total knee arthroplasty History of diabetes mellitus, type II, insulin-dependent Osteoarthritis history Hypertension history Hyperlipidemia Hypothyroidism Former smoker Obesity with BMI of 38.3 GI prophylaxis DVT prophylaxis Full code Plan: Patient is status post left total knee arthroplasty and was able to work with physical therapy today having some improvement in pain and is planning for going home today. Patient with incentive spirometer at bedside encourage the patient to continue using at least 10 times every hour while awake. Patient has been instructed to take home Continue on sliding scale and Accu-Cheks before meals and at bedtime Home medications reviewed and resumed as appropriate. Patient has been instructed to resume blood pressure medications Encouraged to increase activity as tolerated We will continue to follow with orthopedics during hospitalization. Thank you kindly for this consultation. Patient is stable for discharge today. The impression and plan of care has been dictated by Natalie Traylor, nurse practitioner as directed. Dr. Anca MD I have performed a history and examination and MDM of this patient, discussed the same with the dictator, and agree with the dictator's assessment and plan as written ,documented as a scribe. Based on total visit time, I have performed more than 50% of the visit. Any additional findings or plans will be noted. Objective - Vital Signs Vital signs: Vital Signs Temp 98.6 F 03/16/23 07:57 Pulse 82 03/16/23 07:57 Resp 15 03/16/23 07:57 BP 148/71 03/16/23 07:57 Pulse Ox 94 L 03/16/23 07:57 FiO2 Intake & Output 03/15/23 03/16/23 03/16/23 18:59 06:59 18:59 Intake Total 240 Balance 240 Intake: Oral 240 Other: Voiding Method Toilet # Voids 3 - Labs CBC & Chem 7: 03/15/23 05:37 Labs: Abnormal Lab Results - Last 24 Hours (Table) 03/15/23 03/15/23 03/15/23 Range/Units 10:46 16:54 20:19 POC Glucose (mg/dL) 333 H 225 H 267 H (70-110) mg/dL 03/16/23 Range/Units 05:52 POC Glucose (mg/dL) 211 H (70-110) mg/dL
== END 2023-03-16 15:22 | disposition home health service (06) ==
LOC: OR 07:30 → 4SSUR 11:15 → OR 03-15 12:30 → 4SSUR 03-15 12:30
PROVIDERS: ADMIT Orthopaedic Surgery; ATTEND Orthopaedic Surgery
DX: M17.12 Unilateral primary osteoarthritis, left knee (principal); G89.18 Other acute postprocedural pain; I10 Essential (primary) hypertension; E11.65 Type 2 diabetes mellitus with hyperglycemia; D64.9 Anemia, unspecified; E78.5 Hyperlipidemia, unspecified; E03.9 Hypothyroidism, unspecified; E66.9 Obesity, unspecified; Z68.38 Body mass index [BMI] 38.0-38.9, adult; Z79.4 Long term (current) use of insulin; Z79.84 Long term (current) use of oral hypoglycemic drugs; Z79.890 Hormone replacement therapy; Z79.899 Other long term (current) drug therapy; Z88.1 Allergy status to other antibiotic agents; Z88.2 Allergy status to sulfonamides; Z91.048 Other nonmedicinal substance allergy status; Z87.891 Personal history of nicotine dependence; Z90.49 Acquired absence of other specified parts of digestive tract; Z98.890 Other specified postprocedural states; Z82.5 Family history of asthma and other chronic lower respiratory diseases
CPT/HCPCS: 97116; 97161; 64999; 64448; 85025; 83036; 73560; 27447; G0378 ×2; C1713 ×2; C1776; J2250; J1100; J0690 ×2; J2405; J3010; J2795; J2704; J1170 ×3; J2371

== ENCOUNTER 2025-01-24 06:14 | Day surgery (SDC) | payer MEDICARE, OTHER ==
--- NOTE | 2025-01-23 08:24 | P.HPOR ---
History of Present Illness H&P Date: 01/23/25 Chief Complaint: Right thumb and third digit triggering/locking/pain The patient is a 74-year-old female who presents with persistent/progressive locking and catching along with pain in her right thumb and middle fingers. She has tried medications in addition to previous injections with only temporary partial relief. She notes daily pain that limits her. Review of Systems Per HPI Past Medical History Past Medical History: Diabetes Mellitus, Hyperlipidemia, Hypertension, Osteoarthritis (OA), Thyroid Disorder Additional Past Medical History / Comment(s): occasional low blood sugars overnight or in morning- pt states PCP aware. History of Any Multi-Drug Resistant Organisms: None Reported Past Surgical History: Appendectomy, Cholecystectomy, Heart Catheterization, Hysterectomy, Joint Replacement Additional Past Surgical History / Comment(s): idris carpal tunnel, sinus surgery, colonoscopies, left knee replacement Past Anesthesia/Blood Transfusion Reactions: No Reported Reaction Smoking Status: Former smoker - Past Family History Mother Family Medical History: COPD Father Family Medical History: COPD Sister(s) Family Medical History: COPD Medications and Allergies Home Medications Medication Instructions Recorded Confirmed Type Acetaminophen [Tylenol Extra 1,000 mg PO HS PRN 03/09/23 01/21/25 History Strength] Atorvastatin Calcium 40 mg PO MOWEFR 03/09/23 01/21/25 History Cholecalciferol [Vitamin D3 (25 50 mcg PO DAILY 03/09/23 01/21/25 History Mcg = 1000 Iu)] Fish Oil/Dha/Epa [Fish Oil 1,200 1,400 each PO DAILY 03/09/23 01/21/25 History mg Fish Oil] Levothyroxine Sodium [Synthroid] 0.5 tab PO BROWNE 03/09/23 01/21/25 History Levothyroxine Sodium [Synthroid] 125 mcg PO MOTUWETHFRSA 03/09/23 01/21/25 History Magnesium 250 mg PO DAILY 03/09/23 01/21/25 History Multivit-Min/Iron/Folic/Lutein 1 each PO DAILY 03/09/23 01/21/25 History [Centrum Silver Women Tablet] Prasterone (Dhea)/Calcium Carb 1 each PO DAILY 03/09/23 01/21/25 History [Dhea 50 mg Tablet] glipiZIDE 5 mg PO DAILY 03/09/23 01/21/25 History lisinopriL [Zestril] 10 mg PO DAILY 03/09/23 01/21/25 History metFORMIN HCL [Glucophage] 1,000 mg PO DAILY 03/09/23 01/21/25 History Insulin Glargine,Hum.rec.anlog 48 units SQ HS 01/21/25 01/21/25 History [Lantus Solostar Pen] Semaglutide [Ozempic] 1 mg SQ SA 01/21/25 01/21/25 History Allergies Allergy/AdvReac Type Severity Reaction Status Date / Time cephalexin [From Keflex] Allergy Severe turned red Verified 01/21/25 13:39 all over Sulfa (Sulfonamide Allergy Severe turned red Verified 01/21/25 13:39 Antibiotics) all over grass pollen Allergy Unknown Rash/Hives Verified 01/21/25 13:39 adhesive tape AdvReac blisters Verified 01/21/25 13:39 wood/sap Allergy Unknown Rash/Hives Uncoded 01/21/25 13:39 band aids AdvReac Unknown blisters Uncoded 01/21/25 13:39 Physical Examination - Wrist & Hand right Finger catching (Trigger): thumb, long finger Results Patient is a well-developed well-nourished female approximately 5 foot 4, 213 pounds of endomorphic habitus. HEENT exam is nonfocal, neck is supple. She is nontender about the right shoulder elbow and wrist. On examination of the right hand she is tender about the thumb and third digit A1 xochitl. She has palpable triggering. She has mild digital stiffness. Her distal neurovascular exam otherwise appears intact. Assessment and Plan Assessment: Right thumb and middle trigger fingerssymptomatic Plan: I talked to the patient at length regarding her condition along with treatment options. At this point she is quite symptomatic despite conservative measures. After a thorough discussion she opts to proceed with surgery. We will plan to proceed with right thumb and third digit trigger finger release. We will likely perform that as an outpatient procedure utilizing local anesthetic and IV sed ation. Risks and benefits were discussed at length in layman's terms.
[2025-01-24 06:56] VITALS: RESP 16; TEMP 98
[2025-01-24] MEDS: IV FLUID CONTINUATION 1,000 ML IV ONE (06:56)
[2025-01-24] MEDS ORDERED: HYDROmorphone 0.5 MG/0.5 ML SYRINGE IVP PRN (07:00)
[2025-01-24] MEDS ORDERED: MIDAZOLAM 2 MG/2 ML VIAL IV PRN (07:00)
[2025-01-24] MEDS: LACTATED RINGERS 1,000 ML IV SCH (07:02)
[2025-01-24] MEDS: ONDANSETRON 4 MG/2 ML VIAL IVP ONE (07:04)
[2025-01-24] MEDS: DEXAMETHASONE SOD PHOSPHATE 4 MG/ML 1 ML VIAL IV ONE (07:05)
[2025-01-24 07:19] LABS: Glucose,Whole Blood 112 mg/dL (70-110)
[2025-01-24] MEDS: BUPIVACAINE (PF) 0.25% 30 ML VIAL SQ ONE ×2 (07:27→07:53)
[2025-01-24] MEDS ORDERED: PROPOFOL 10 MG/ML 20 ML VIAL IV ONE (07:37)
[2025-01-24] MEDS ORDERED: MIDAZOLAM 2 MG/2 ML VIAL ONE (07:37)
[2025-01-24] MEDS ORDERED: fentaNYL (PF) 50 MCG/ML 2 ML AMP ONE (07:37)
[2025-01-24] MEDS ORDERED: KETAMINE HCL IN 0.9 % NACL 50 MG/5 ML SYRINGE ONE (07:37)
[2025-01-24] MEDS ORDERED: KETOROLAC 15 MG/ML 1 ML VIAL ONE (07:37)
[2025-01-24] MEDS: ceFAZolin 2 GM in DEXTROSE 5% IN WATER 50 ML IVPB PRN (07:41)
--- NOTE | 2025-01-24 08:28 | P.OP ---
Date of Procedure: 01/24/25 Preoperative Diagnosis: Symptomatic right thumb/third digit trigger fingers Postoperative Diagnosis: Same Procedure(s) Performed: Trigger finger release right thumb/third digit Anesthesia: MAC, local Surgeon: Paramjit Nava Estimated Blood Loss (ml): 1 Pathology: none sent Condition: stable Disposition: PACU Indications for Procedure: The patient is a 74-year-old female who presents with persistent/progressive right thumb and third digit triggering despite conservative measures. A discussion of the risks and benefits of operative invention versus continued conservative measures was made with the patient. She opted to proceed with surgery. Operative risks include infection, neurovascular injury, incomplete resolution of symptoms, possible recurrence, possible need for subsequent procedures was discussed. Informed consent was obtained. Operative Findings: As below Description of Procedure: The patient was brought to the operating room and after induction of IV sedation right upper extremity was prepped and draped in normal fashion. The tourniquet was inflated to 270 mmHg. The proposed incision site was outlined with a skin marker just proximal to the distal palmar crease measuring approximate 1 cm in line of the thumb and third digit. 4 mL of quarter percent plain Marcaine was injected into the proposed incision sites. The skin was incised sharply. Subcutaneous tissues were divided bluntly. The neurovascular bundles were gently retracted. The A1 xochitl was then identified and transected under direct visualization proximally and distally of both the thumb and third digit. There was nodularity of the flexor tendon. I felt I had adequate release at this point. The wound was irrigated normal saline. The skin was reapproximated with simple 4-0 nylon sutures. A sterile dressing was applied. The tourniquet was deflated with less than 15 minutes total tourniquet time. Blood loss was estimated at 1 mL. No complications were incurred. Sponge and needle counts were correct at the end of the case. The patient was awoken from sedation and transferred to the recovery room in good condition.
[2025-01-24 08:35] VITALS: BP 127/63; PULSE 74
[2025-01-24 08:38] LABS: Glucose,Whole Blood 122 mg/dL (70-110)
== END 2025-01-24 09:16 | disposition home or self-care (01) ==
LOC: OR 06:14
PROVIDERS: ATTEND Orthopaedic Surgery
DX: M65.311 Trigger thumb, right thumb (principal); M65.331 Trigger finger, right middle finger; I10 Essential (primary) hypertension; E11.9 Type 2 diabetes mellitus without complications; E78.5 Hyperlipidemia, unspecified; E07.9 Disorder of thyroid, unspecified; M19.90 Unspecified osteoarthritis, unspecified site; Z79.890 Hormone replacement therapy; Z79.4 Long term (current) use of insulin; Z79.85 Long-term (current) use of injectable non-insulin antidiabetic drugs; Z79.84 Long term (current) use of oral hypoglycemic drugs; Z79.899 Other long term (current) drug therapy; Z87.891 Personal history of nicotine dependence; Z88.1 Allergy status to other antibiotic agents; Z88.2 Allergy status to sulfonamides; Z91.09 Other allergy status, other than to drugs and biological substances; Z88.8 Allergy status to other drugs, medicaments and biological substances
CPT/HCPCS: 26055 ×2; J2250; J0690; J2405; J3010; J1885; J2704; J0665

== ENCOUNTER 2025-02-24 13:49 | Inpatient (IN) | payer MEDICARE ==
--- NOTE | 2025-02-24 14:03 | P.HPOR ---
History of Present Illness H&P Date: 02/24/25 Chief Complaint: Right hand pain/swelling The patient is a 74-year-old [id number] female who presents with right thumb pain and swelling that began 2 days ago. Previously she had undergone right trigger thumb release 01/24/2025. Initially she did quite well. She has had increasing redness and pain along with swelling over the past couple days. She does not recall a specific trauma. She denies fevers or chills. Review of Systems Per HPI Past Medical History Past Medical History: Diabetes Mellitus, Hyperlipidemia, Hypertension, Osteoarthritis (OA), Thyroid Disorder Additional Past Medical History / Comment(s): current anemia- states pcp instructed her to start iron supplement., states recent low blood sugars in the middle of the night - pt will inform her pcp. History of Any Multi-Drug Resistant Organisms: None Reported Past Surgical History: Appendectomy, Cholecystectomy, Heart Catheterization, Joint Replacement Additional Past Surgical History / Comment(s): idris carpal tunnel, sinus surgery, colonoscopies, heart cath (4 years ago) Past Anesthesia/Blood Transfusion Reactions: No Reported Reaction Past Alcohol Use History: Occasional Additional Past Alcohol Use History / Comment(s): quit smoking 28 yrs ago, hx of less than 1 ppd, smoked approx 30 years - Past Family History Mother Family Medical History: COPD Father Family Medical History: COPD Sister(s) Family Medical History: COPD Medications and Allergies Home Medications Medication Instructions Recorded Confirmed Type Acetaminophen [Tylenol Extra 1,000 mg PO HS PRN 03/09/23 01/24/25 History Strength] Atorvastatin Calcium 40 mg PO MOWEFR 03/09/23 01/24/25 History Cholecalciferol [Vitamin D3 (25 50 mcg PO DAILY 03/09/23 01/21/25 History Mcg = 1000 Iu)] Fish Oil/Dha/Epa [Fish Oil 1,200 1,400 each PO DAILY 03/09/23 01/21/25 History mg Fish Oil] Levothyroxine Sodium [Synthroid] 0.5 tab PO BROWNE 03/09/23 01/24/25 History Levothyroxine Sodium [Synthroid] 125 mcg PO MOTUWETHFRSA 03/09/23 01/24/25 History Magnesium 250 mg PO DAILY 03/09/23 01/21/25 History Multivit-Min/Iron/Folic/Lutein 1 each PO DAILY 03/09/23 01/21/25 History [Centrum Silver Women Tablet] Prasterone (Dhea)/Calcium Carb 1 each PO DAILY 03/09/23 01/21/25 History [Dhea 50 mg Tablet] glipiZIDE 5 mg PO DAILY 03/09/23 01/24/25 History lisinopriL [Zestril] 10 mg PO DAILY 03/09/23 01/24/25 History metFORMIN HCL [Glucophage] 1,000 mg PO DAILY 03/09/23 01/24/25 History Insulin Glargine,Hum.rec.anlog 48 units SQ HS 01/21/25 01/24/25 History [Lantus Solostar Pen] Semaglutide [Ozempic] 1 mg SQ SA 01/21/25 01/21/25 History Acetaminophen-Codeine 300-30mg 1 tab PO Q6H PRN #12 tablet 01/24/25 Rx [Tylenol w/codeine #3] Allergies Allergy/AdvReac Type Severity Reaction Status Date / Time cephalexin [From Keflex] Allergy Severe turned red Verified 01/24/25 06:58 all over Sulfa (Sulfonamide Allergy Severe turned red Verified 01/24/25 06:58 Antibiotics) all over grass pollen Allergy Unknown Rash/Hives Verified 01/24/25 06:58 adhesive tape AdvReac blisters Verified 01/24/25 06:58 wood/sap Allergy Unknown Rash/Hives Uncoded 01/24/25 06:58 band aids AdvReac Unknown blisters Uncoded 01/24/25 06:58 Physical Examination - Wrist & Hand right Location of pain: palmar hand, thumb Results The patient is a well-developed well-nourished female approximately 5 foot 4, 212 pounds of endomorphic habitus. HEENT exam is nonfocal, neck is supple. She is nontender about the right shoulder elbow and wrist. She does have a 3 mm opening over the volar aspect of the right thumb over the palmar crease. There is warmth and erythema over the thenar region as well as the dorsal radial aspe ct of the right hand. She is nontender over the flexor tendons of the lesser digits. She does have diminished range of motion of the right thumb. There is expressible purulence. Assessment and Plan Assessment: Status post right trigger thumb release with cellulitis/thenar abscess. Diabetes Plan: I talked the patient about her condition and at this point recommend starting IV antibiotics. Will start IV Ancef 1 g every 8 hours. We will obtain laboratory studies to include CBC with differential, sed rate, and C-reactive protein. We will keep her n.p.o. after midnight and check her clinically in the morning. If improvement does not occur, we will consider irrigation and debridement.
[2025-02-24] MEDS ORDERED: VANCOMYCIN IV PER PHARMACY 1 EACH MISC MISCELLANE PRN (14:16)
[2025-02-24] MEDS ORDERED: NALOXONE 0.4 MG/ML 1 ML VIAL IV PRN (14:21)
[2025-02-24 15:04] LABS: Basophils # (A) 0.06 10*3/uL (0.00-0.10); Basophils % (A) 0.5 %; Eosinophils # (A) 0.27 10*3/uL (0.04-0.35); Eosinophils % (A) 2.1 %; HCT 40.5 % (37.2-46.3); HGB 13.1 g/dL (12.0-15.0); Lymphocytes # (A) 1.63 10*3/uL (0.90-5.00); Lymphocytes % (A) 12.4 %; MCH 25.7 pg (27.0-32.0); MCHC 32.3 g/dL (32.0-37.0); MCV 79.6 fL (80.0-97.0); Monocytes # (A) 0.95 10*3/uL (0.20-1.00); Monocytes % (A) 7.2 %; Neutrophils # (A) 10.16 10*3/uL (1.80-7.70); Neutrophils % (A) 77.5 %; Platelet Count 217 10*3/uL (140-440); RBC 5.09 10*6/uL (4.10-5.20); RDW 14.5 % (11.5-14.5); WBC 13.11 10*3/uL (4.50-10.00)
--- NOTE | 2025-02-24 15:27 | ED ---
General Adult HPI - General Chief complaint: Skin/Abscess/Foreign Body Stated complaint: R hand swelling Time Seen by Provider: 02/24/25 14:20 Source: patient, family Mode of arrival: ambulatory Limitations: no limitations - History of Present Illness Initial comments: Dictation was produced using [employer] dictation software. please excuse any grammatical, word or spelling errors. Chief Complaint: 74-year-old female presents to the ER for admission History of Present Illness: Patient 74-year-old female sent in from Ortho clinic. Patient had surgery recently was seen at a follow-up appointment with orthopedic surgery. Allegedly had surgical trigger point injection performed by Dr. Nava. She was told to come to the ER to be directly admitted for concerns of surgical infection. No constitutional symptoms. The ROS documented in this emergency department record has been reviewed and confirmed by me. Those systems with pertinent positive or negative responses have been documented in the HPI. All other systems are other negative and/or n oncontributory. - Related Data Home Medications Medication Instructions Recorded Confirmed Acetaminophen [Tylenol Extra 1,000 mg PO HS PRN 03/09/23 01/24/25 Strength] Atorvastatin Calcium 40 mg PO MOWEFR 03/09/23 01/24/25 Cholecalciferol [Vitamin D3 (25 50 mcg PO DAILY 03/09/23 01/21/25 Mcg = 1000 Iu)] Fish Oil/Dha/Epa [Fish Oil 1,200 1,400 each PO DAILY 03/09/23 01/21/25 mg Fish Oil] Levothyroxine Sodium [Synthroid] 0.5 tab PO BROWNE 03/09/23 01/24/25 Levothyroxine Sodium [Synthroid] 125 mcg PO MOTUWETHFRSA 03/09/23 01/24/25 Magnesium 250 mg PO DAILY 03/09/23 01/21/25 Multivit-Min/Iron/Folic/Lutein 1 each PO DAILY 03/09/23 01/21/25 [Centrum Silver Women Tablet] Prasterone (Dhea)/Calcium Carb 1 each PO DAILY 03/09/23 01/21/25 [Dhea 50 mg Tablet] glipiZIDE 5 mg PO DAILY 03/09/23 01/24/25 lisinopriL [Zestril] 10 mg PO DAILY 03/09/23 01/24/25 metFORMIN HCL [Glucophage] 1,000 mg PO DAILY 03/09/23 01/24/25 Insulin Glargine,Hum.rec.anlog 48 units SQ HS 01/21/25 01/24/25 [Lantus Solostar Pen] Semaglutide [Ozempic] 1 mg SQ SA 01/21/25 01/21/25 Previous Rx's Medication Instructions Recorded Acetaminophen-Codeine 300-30mg 1 tab PO Q6H PRN #12 tablet 01/24/25 [Tylenol w/codeine #3] Allergies Allergy/AdvReac Type Severity Reaction Status Date / Time cephalexin [From Keflex] Allergy Severe turned red Verified 01/24/25 06:58 all over Sulfa (Sulfonamide Allergy Severe turned red Verified 01/24/25 06:58 Antibiotics) all over grass pollen Allergy Unknown Rash/Hives Verified 01/24/25 06:58 adhesive tape AdvReac blisters Verified 01/24/25 06:58 wood/sap Allergy Unknown Rash/Hives Uncoded 01/24/25 06:58 band aids AdvReac Unknown blisters Uncoded 01/24/25 06:58 Review of Systems ROS Statement: Those systems with pertinent positive or pertinent negative responses have been documented in the HPI. ROS Other: All systems not noted in ROS Statement are negative. Past Medical History Past Medical History: Diabetes Mellitus, Hyperlipidemia, Hypertension, Osteoarthritis (OA), Thyroid Disorder Additional Past Medical History / Comment(s): current anemia- states pcp instructed her to start iron supplement., states recent low blood sugars in the middle of the night - pt will inform her pcp. History of Any Multi-Drug Resistant Organisms: None Reported Past Surgical History: Appendectomy, Cholecystectomy, Heart Catheterization, Joint Replacement Additional Past Surgical History / Comment(s): idris carpal tunnel, sinus surgery, colonoscopies, heart cath (4 years ago) Past Anesthesia/Blood Transfusion Reactions: No Reported Reaction Past Psychological History: No Psychological Hx Reported Past Alcohol Use History: Occasional - Past Family History Mother Family Medical History: COPD Father Family Medical History: COPD Sister(s) Family Medical History: COPD General Exam - General Exam Comments Initial Comments: General: Well-appearing, nontoxic, no acute distress. Head: Normocephalic, atraumatic Eyes: PERRLA, EOMI ENT: Airway patent Chest: Nonlabored breathing Skin: No visual rash, normal skin tone, diffuse redness to the left hand Neuro: Alert and oriented 3 Musculoskeletal: No gross abnormalities Limitations: no limitations Course Vital Signs 02/24/25 14:38 Temperature 98.4 F Pulse Rate 90 Respiratory 16 Rate Blood Pressure 143/79 O2 Sat by Pulse 97 Oximetry Medical Decision Making - Medical Decision Making Was pt. sent in by a medical professional or institution (, PA, SSIS SSRS DEVELOPER, urgent care, hospital, or fci...) When possible be specific @ -Orthopedic surgery clinic Did you speak to anyone other than the patient for history (EMS, parent, family, police, friend...)? What history was obtained from this source @ -No Did you review nursing and triage notes (agree or disagree)? Why? @ -I reviewed and agree with nursing and triage notes Were old charts reviewed (outside hosp., previous admission, EMS record, old EKG, old radiological studies, urgent care reports/EKG's, fci records)? Report findings @ -No old charts were reviewed Differential Diagnosis (chest pain, altered mental status, abdominal pain women, abdominal pain men, vaginal bleeding, musculoskeletal, weakness, fever, dyspnea, syncope, headache, dizziness, GI bleed, back pain, seizure, CVA, palpatations, mental health)? @ -Cellulitis, abscess, felon EKG interpreted by me (3pts min.). @ -None done X-rays interpreted by me (1pt min.). @ -None done CT interpreted by me (1pt min.). @ -None done U/S interpreted by me (1pt. min.). @ -None done What testing was considered but not performed or refused? (CT, X-rays, U/S, labs)? Why? @ -None What meds were considered but not given or refused? Why? @ -None Was smoking cessation discussed for >3mins.? @ -No Were there social determinants of health that impacted care today? How? (Homelessness, low income, unemployed, alcoholism, drug addiction, transportation, low edu. Level, literacy, decrease access to med. care, senior living, rehab)? @ -No Was there de-escalation of care discussed even if they declined (Discuss DNR or withdrawal of care, Hospice)? DNR status @ -No What co-morbidities impacted this encounter? (DM, HTN, Smoking, COPD, CAD, Cancer, CVA, ARF, Chemo, Hep., AIDS, mental health diagnosis, sleep apnea, morbid obesity)? @ -None Was patient admitted / discharged? Hospital course, mention meds given and route, prescriptions, significant lab abnormalities, going to OR and other pertinent info. @ -74-year-old female presents from Ortho clinic for direct admit for treatment of hand infection which could be related to recent trigger point injection Did you discuss the management of the patient with other professionals (professionals i.e. , PA, SSIS SSRS DEVELOPER, lab, RT, psych nurse, social worker school, clerical adviser, teacher, staff weapons officer, case monitor)? Give summary @ -Case discussed with Ortho team Was critical care preformed (if so, how long)? @ -No Undiagnosed new problem with uncertain prognosis? @ -No Drug Therapy requiring intensive monitoring for toxicity (Heparin, Nitro, Insulin, Cardizem)? @ -No Were any procedures done? @ -No Diagnosis/symptom? Acute, or Chronic, or Acute on Chronic? Uncomplicated (without systemic symptoms) or Complicated (systemic symptoms)? @ -Surgical site infection Side effects of treatment? @ -No Exacerbation, Progression, or Severe Exacerbation? @ -No Poses a threat to life or bodily function? How? (Chest pain, [place], [place], pneumonia, PE, COPD, DKA, ARF, appy, cholecystitis, CVA, Diverticulitis, Homicidal, Suicidal, threat to staff... and all critical care pts) @ -Yes - Lab Data Result diagrams: 02/24/25 14:55 Lab Results 02/24/25 02/24/25 Range/Units 14:55 14:55 WBC 13.11 H (4.50-10.00) 10*3/uL RBC 5.09 (4.10-5.20) 10*6/uL Hgb 13.1 (12.0-15.0) g/dL Hct 40.5 (37.2-46.3) % MCV 79.6 L (80.0-97.0) fL MCH 25.7 L (27.0-32.0) pg MCHC 32.3 (32.0-37.0) g/dL Plt Count 217 (140-440) 10*3/uL MPV 10.6 (9.5-12.2) fL Immature Gran % (Auto) 0.3 % Neutrophils % 77.5 % Lymphocytes % 12.4 % Monocytes % 7.2 % Eosinophils % 2.1 % Basophils % 0.5 % Immature Gran # 0.04 (0.00-0.04) 10*3/uL Neutrophils # 10.16 H (1.80-7.70) 10*3/uL Lymphocytes # 1.63 (0.90-5.00) 10*3/uL Monocytes # 0.95 (0.20-1.00) 10*3/uL Eosinophils # 0.27 (0.04-0.35) 10*3/uL Basophils # 0.06 (0.00-0.10) 10*3/uL C-Reactive Protein 3.5 H (<1.0) mg/dL Disposition Clinical Impression: Surgical site infection Disposition: ADMITTED IP TO THIS HOSP Condition: Fair Referrals: Stacie Jolly DO [Primary Care Provider] - 1-2 days Decision Time: 15:52
[2025-02-24] MEDS: SODIUM CHLORIDE 0.9% 1,000 ML IV SCH (16:04)
[2025-02-24] MEDS: MORPHINE SULFATE 4 MG/ML SYRINGE IVP STA (16:36)
[2025-02-24] MEDS: VANCOMYCIN 1,500 MG in SODIUM CHLORIDE 0.9% 500 ML 500 ML IVPB ONE (17:58)
[2025-02-24 18:43] LABS: African American GFR (CKD) >90 (>60 ml/min/1.73 sqM); Non-African American GFR(CKD) 84 (>60 ml/min/1.73 sqM)
[2025-02-24] MEDS: HYDROcodone/APAP 7.5-325MG 1 EACH TAB PO PRN (20:47)
[2025-02-25 07:17] LABS: African American GFR (CKD) >90 (>60 ml/min/1.73 sqM); Non-African American GFR(CKD) 89 (>60 ml/min/1.73 sqM)
[2025-02-25] MEDS: VANCOMYCIN 1,500 MG in SODIUM CHLORIDE 0.9% 500 ML 500 ML IVPB SCH (09:19)
[2025-02-25] MEDS: ONDANSETRON 4 MG/2 ML VIAL IVP STA (14:07)
[2025-02-25] MEDS: DEXAMETHASONE SOD PHOSPHATE 4 MG/ML 1 ML VIAL IVP STA (14:08)
[2025-02-25] MEDS: FAMOTIDINE 20 MG/2 ML VIAL IV STA (14:13)
[2025-02-25 14:17] LABS: Glucose,Whole Blood 177 mg/dL (70-110)
[2025-02-25] MEDS: IV FLUID CONTINUATION 1,000 ML IV ONE (14:18)
[2025-02-25] MEDS ORDERED: LIDOCAINE 1% INJ 10MG/ML (20 ML MDV) ONE (14:31)
[2025-02-25] MEDS ORDERED: SUCCINYLCHOLINE CHLORIDE 200 MG/10 ML VIAL IV ONE (14:31)
[2025-02-25] MEDS ORDERED: fentaNYL (PF) 50 MCG/ML 2 ML AMP ONE (14:31)
[2025-02-25] MEDS ORDERED: PROPOFOL 10 MG/ML 20 ML VIAL IV ONE (14:31)
[2025-02-25] MEDS ORDERED: MIDAZOLAM 2 MG/2 ML VIAL ONE (14:31)
[2025-02-25] MEDS ORDERED: KETOROLAC 15 MG/ML 1 ML VIAL ONE (14:31)
[2025-02-25] MEDS: ceFAZolin 1,000 MG in SODIUM CHLORIDE 0.9% 1,000 ML IRRIGATION ONE (14:39)
[2025-02-25] MEDS ORDERED: hydrOXYzine HCL 25 MG TAB PO PRN (15:24)
[2025-02-25] MEDS ORDERED: SENNOSIDES-DOCUSATE SODIUM 1 EACH TAB PO PRN (15:24)
--- NOTE | 2025-02-25 15:38 | P.OP ---
Date of Procedure: 02/25/25 Preoperative Diagnosis: Right thumb/palm cellulitis/abscess Postoperative Diagnosis: Same Procedure(s) Performed: Incision and drainage/irrigation and debridement right thumb/palm abscess Anesthesia: MERCEDES Surgeon: Paramjit Nava [employer] Vice President #1: Curly Cox Estimated Blood Loss (ml): 2 Pathology: other (Gram stain and cultures) Condition: stable Disposition: PACU Indications for Procedure: The patient is a 74-year-old female who underwent a right trigger thumb release approximately 4 to 5 weeks ago who presents with a 2 to 3-day history of increasing warmth, pain, and drainage from her thumb. The initial postoperative phase was uncomplicated. Her sutures had been removed 2 weeks ago. Clinically she was noted of evidence of a thenar abscess/cellulitis of the thumb. A discussion of the risks and benefits of operative intervention was made with the patient. She opted to proceed. Operative risk to include persistence of infection, neurovascular injury, and possible need for subsequent procedures was discussed. Informed consent was obtained. Operative Findings: As below Description of Procedure: The patient was brought to the operating room, and after induction of general anesthesia the right upper extremity was prepped and draped in normal fashion. The tourniquet was inflated to 250 mmHg. The previous volar incision about the right thumb along the palmar crease was then opened utilizing a scalpel. Blunt dissection was then made down to the level of the flexor tendon. The neurovascular bundles were gently retracted. I extended this incision proximally over the thenar eminence approximately 1 cm. The skin was incised sharply. Subcutaneous tissues were divided bluntly. Again the neurovascular bundles were gently retracted. There was a small amount of purulence. Deep cultures were obtained. The flexor tendon appeared to be intact. Copious irrigation was then performed. The skin edges were then loosely reapproximated with simple 4-0 nylon sutures. A sterile dressing was applied. The tourniquet was deflated less than 15 minutes total tourniquet time. The patient was awoken from general anesthesia and transferred to recovery room in good condition. Blood loss was estimated 2 cc. No complications were incurred. Curly VELASQUEZ assisted during the case to include positioning, exposure, irrigation and debridement, and closure.
[2025-02-25] MEDS: HYDROmorphone 0.5 MG/0.5 ML SYRINGE IVP PRN (17:14)
[2025-02-25 20:37] LABS: Glucose,Whole Blood 242 mg/dL (70-110)
[2025-02-25] MEDS ORDERED: DEXTROSE 50% SYRINGE 50 ML IVP PRN ×2 (21:18)
[2025-02-25] MEDS: INSULIN LISPRO (HumaLOG) 100 UNIT/ML 10 mL VL SQ ONE (22:20)
--- NOTE | 2025-02-25 22:37 | P.CONS ---
History of Present Illness - Reason for Consult Consult date: 02/25/25 ID management right hand infection Requesting physician: Curly Cox - Chief Complaint Right hand pain swelling redness x 2 days - History of Present Illness Patient is a 74-year-old female with a past medical history significant for Diabetes Mellitus, Hyperlipidemia, Hypertension, Osteoarthritis (OA), Thyroid Disorder, patient also have a recent history of right trigger thumb release on 01/24/2025 patient mention she was doing well however about 2 days ago started having increasing pain swelling redness to the right thumb area extending to the dorsal aspect of the right hand patient denies any history of any trauma or any skin breakdown has been complaining of pain describing it to be sharp moderate in intensity without any lesion with associated swelling or redness and did have some drainage patient denies high-grade fever did have some chills associated with it with the symptoms the patient presented to hospital on arrival to the ER patient was afebrile subsequently did have a low-grade fever of 99.9 degrees for mild patient was tachycardic but not hypotensive mildly hypoxic currently on 2 L nasal oxygen she did have elevated white count 13.11 with a creatinine 0.72 blood culture has been obtained which are currently pending patient was started on vancomycin because of her multiple antibiotic allergies infectious he was consulted for further management of antibiotics Review of Systems Positive point and negatives has been mentioned in the HPI, complete review of systems was performed and all other systems are negative Past Medical History Past Medical History: Diabetes Mellitus, Hyperlipidemia, Hypertension, Osteoarthritis (OA), Thyroid Disorder Additional Past Medical History / Comment(s): current anemia- states pcp instructed her to start iron supplement., states recent low blood sugars in the middle of the night - pt will inform her pcp. History of Any Multi-Drug Resistant Organisms: None Reported Past Surgical History: Appendectomy, Cholecystectomy, Heart Catheterization, Joint Replacement Additional Past Surgical History / Comment(s): idris carpal tunnel, sinus surgery, colonoscopies, heart cath (4 years ago) Past Anesthesia/Blood Transfusion Reactions: No Reported Reaction Past Psychological History: No Psychological Hx Reported Smoking Status: Former smoker Past Alcohol Use History: Occasional Additional Past Alcohol Use History / Comment(s): quit smoking 28 yrs ago, hx of less than 1 ppd, smoked approx 30 years Past Drug Use History: None Reported - Past Family History Mother Family Medical History: COPD Father Family Medical History: COPD Sister(s) Family Medical History: COPD Medications and Allergies Home Medications Medication Instructions Recorded Confirmed Type Acetaminophen [Tylenol Extra 1,000 mg PO HS PRN 03/09/23 02/24/25 History Strength] Atorvastatin Calcium 40 mg PO MOWEFR 03/09/23 02/24/25 History Cholecalciferol [Vitamin D3 (25 50 mcg PO DAILY 03/09/23 02/24/25 History Mcg = 1000 Iu)] Fish Oil/Dha/Epa [Fish Oil 1,200 1 cap PO DAILY 03/09/23 02/24/25 History mg Fish Oil] Levothyroxine Sodium [Synthroid] 125 mcg PO MOTUWETHFRSA 03/09/23 02/24/25 History Levothyroxine Sodium [Synthroid] 187.5 mcg PO BROWNE 03/09/23 02/24/25 History Magnesium 250 mg PO DAILY 03/09/23 02/24/25 History Multivit-Min/Iron/Folic/Lutein 1 tab PO DAILY 03/09/23 02/24/25 History [Centrum Silver Women Tablet] Prasterone (Dhea)/Calcium Carb 1 tab PO DAILY 03/09/23 02/24/25 History [Dhea 50 mg Tablet] glipiZIDE 5 mg PO DAILY 03/09/23 02/24/25 History lisinopriL [Zestril] 10 mg PO DAILY 03/09/23 02/24/25 History metFORMIN HCL [Glucophage] 1,000 mg PO DAILY 03/09/23 02/24/25 History Insulin Glargine,Hum.rec.anlog 48 units SQ HS 01/21/25 02/24/25 History [Lantus Solostar Pen] Semaglutide [Ozempic] 1 mg SQ SA 01/21/25 02/24/25 History Acetaminophen-Codeine 300-30mg 1 tab PO Q6H PRN #12 tablet 01/24/25 02/24/25 Rx [Tylenol w/codeine #3] Allergies Allergy/AdvReac Type Severity Reaction Status Date / Time cephalexin [From Keflex] Allergy Severe turned red Verified 02/24/25 17:05 all over Sulfa (Sulfonamide Allergy Severe turned red Verified 02/24/25 17:05 Antibiotics) all over grass pollen Allergy Unknown Rash/Hives Verified 02/24/25 17:05 adhesive tape Allergy blisters Verified 02/24/25 17:05 wood/sap Allergy Unknown Rash/Hives Uncoded 02/24/25 17:05 band aids AdvReac Unknown blisters Uncoded 02/24/25 17:05 Physical Exam Vitals: Vital Signs Temp Pulse Pulse Resp BP BP Pulse Ox 02/25/25 07:11 98.6 F 82 17 133/81 95 02/25/25 02:00 99.5 F 89 16 125/75 94 L 02/24/25 23:13 91 20 160/78 96 02/24/25 22:30 99.9 F H 87 18 182/76 97 02/24/25 16:35 78 20 170/80 99 02/24/25 14:38 98.4 F 90 16 143/79 97 Intake and Output 02/24/25 02/25/25 02/25/25 22:59 06:59 14:59 Other: # Voids 1 Weight 94.347 kg GENERAL DESCRIPTION: Elderly female lying in bed, no distress. No tachypnea or accessory muscle of respiration use. HEENT: Shows Pallor , no scleral icterus. Oral mucous membrane is dry. No pharyngeal erythema or thrush NECK: Trachea central, no thyromegaly. LUNGS: Unlabored breathing. Clear to auscultation anteriorly. No wheeze or cr ackle. HEART: S1, S2, regular rate and rhythm. No loud murmur ABDOMEN: Soft, no tenderness , guarding or rigidity, no organomegaly EXTREMITIES: Right hand and thumb area did have swelling redness extending on the dorsal side of the right hand minimal drainage at the base of the right thumb SKIN: No rash, no masses palpable. NEUROLOGICAL: The patient is awake, alert, oriented x3, mood and affect normal. Results CBC & Chem 7: 02/24/25 14:55 02/25/25 06:18 Labs: Abnormal Lab Results - Last 24 Hours (Table) 02/24/25 02/24/25 Range/Units 14:55 14:55 WBC 13.11 H (4.50-10.00) 10*3/uL MCV 79.6 L (80.0-97.0) fL MCH 25.7 L (27.0-32.0) pg Neutrophils # 10.16 H (1.80-7.70) 10*3/uL ESR 65 H (0-30) mm/Hr C-Reactive Protein 3.5 H (<1.0) mg/dL Assessment and Plan (1) Cellulitis of thumb, right Current Visit: Yes Status: Acute Code(s): L03.011 - CELLULITIS OF RIGHT FINGER SNOMED Code(s): 85352210066507345 (2) Surgical site infection Current Visit: Yes Status: Acute Code(s): T81.49XA - INFECTION FOLLOWING A PROCEDURE, OTHER SURGICAL SITE, INIT SNOMED Code(s): 34539974 Plan: 1patient presented to hospital with right hand cellulitis in this patient who did have a history of right thumb trigger release on 01/24/2025 now presenting with increasing swelling or redness and some drainage at the base of the right thumb concerning for cellulitis and possible abscess and likely from gram- positive skin sara. 2patient with multiple antibiotic ALLERGIES that would limit the number of antibiotic safe to use 3-await surgical drainage and deep culture that will help guide further antibiotic therapy 4-will empirically treat with vancomycin pharmacy to dose while waiting for the culture to finalize We will follow on clinical condition and cultures to further adjust medication if needed Thank you for this consultation we will follow the patient along with you Dictation was produced using [employer] dictation software. please excuse any grammatical, word or spelling errors. Time with Patient: Greater than 30
[2025-02-26] MEDS: ACETAMINOPHEN TAB 325 MG TAB PO PRN (02:02)
[2025-02-26 06:08] LABS: Glucose,Whole Blood 150 mg/dL (70-110)
[2025-02-26] MEDS: INSULIN LISPRO (HumaLOG) 100 UNIT/ML 10 mL VL SQ SCH (06:09)
[2025-02-26 06:39] LABS: Basophils # (A) 0.05 10*3/uL (0.00-0.10); Basophils % (A) 0.5 %; Eosinophils # (A) 0.09 10*3/uL (0.04-0.35); Eosinophils % (A) 0.8 %; HCT 34.5 % (37.2-46.3); HGB 11.0 g/dL (12.0-15.0); Lymphocytes # (A) 1.31 10*3/uL (0.90-5.00); Lymphocytes % (A) 12.2 %; MCH 25.2 pg (27.0-32.0); MCHC 31.9 g/dL (32.0-37.0); MCV 79.1 fL (80.0-97.0); Monocytes # (A) 0.79 10*3/uL (0.20-1.00); Monocytes % (A) 7.4 %; Neutrophils # (A) 8.44 10*3/uL (1.80-7.70); Neutrophils % (A) 78.8 %; Platelet Count 178 10*3/uL (140-440); RBC 4.36 10*6/uL (4.10-5.20); RDW 13.9 % (11.5-14.5); WBC 10.71 10*3/uL (4.50-10.00)
[2025-02-26 11:07] LABS: Glucose,Whole Blood 194 mg/dL (70-110)
[2025-02-26] MEDS: CHOLECALCIFEROL 25 MCG (1000 IU) TABLET PO SCH (12:12)
[2025-02-26] MEDS: ATORVASTATIN 40 MG TAB PO SCH (12:12)
[2025-02-26] MEDS: LEVOTHYROXINE 125 MCG TAB PO SCH (12:13)
--- NOTE | 2025-02-26 13:07 | P.PN ---
Subjective Progress Note Date: 02/26/25 Principal diagnosis: Right thumb/palm cellulitis/abscess Postoperative Diagnosis: Same Procedure(s) Performed: Incision and drainage/irrigation and debridement right thumb/palm abscess Patient was seen at bedside this morning sitting up in chair with dressing present over right hand. Patient says she is having some pain at this time but is controlled with oral medication. Patient currently on IV Vanco. ID following. Cultures pending at this time. Patient states she does feel some improved sensation along the digits in her hand since surgery was performed. Patient also mentions the swelling seems to be improving a little bit as well as pain. Objective - Vital Signs Vital signs: Vital Signs Temp 98.2 F 02/26/25 08:00 Pulse 86 02/26/25 08:00 Resp 12 02/26/25 08:00 BP 126/74 02/26/25 08:00 Pulse Ox 97 02/26/25 08:00 FiO2 Intake & Output 02/25/25 02/26/25 02/26/25 18:59 06:59 18:59 Intake Total 701 Output Total 2 Balance 699 Weight 94.347 kg Intake: IV 701 Output: Estimated Blood Loss 2 Other: Voiding Method Toilet # Voids 2 1 - Exam Postoperative dressing was taken down over right hand/wrist this morning. Negative for any active drainage from incision. There does appear to be some moderate swelling and erythema over the first webspace in the right palm. There also does appear to be a little bit of erythema extending into the right wrist on the palmar aspect. Sensation is equal, symmetric, by intact on exam. Patient does have limited range of motion throughout digits 1 through 5 on exam secondary to pain stiffness and swelling. 4-/5 in right wrist on exam. 4/5 in right elbow and right shoulder. Radial pulse intact, 2+ bilaterally. Cap refill under 2 seconds in digits of upper extremities. - Labs CBC & Chem 7: 02/26/25 06:14 02/25/25 06:18 Labs: Abnormal Lab Results - Last 24 Hours (Table) 02/25/25 02/25/25 02/26/25 Range/Units 14:16 20:36 06:07 WBC (4.50-10.00) 10*3/uL Hgb (12.0-15.0) g/dL Hct (37.2-46.3) % MCV (80.0-97.0) fL MCH (27.0-32.0) pg MCHC (32.0-37.0) g/dL Neutrophils # (1.80-7.70) 10*3/uL POC Glucose (mg/dL) 177 H 242 H 150 H (70-110) mg/dL Hemoglobin A1c (<=6.0) % 02/26/25 02/26/25 02/26/25 Range/Units 06:14 06:14 11:06 WBC 10.71 H (4.50-10.00) 10*3/uL Hgb 11.0 L (12.0-15.0) g/dL Hct 34.5 L (37.2-46.3) % MCV 79.1 L (80.0-97.0) fL MCH 25.2 L (27.0-32.0) pg MCHC 31.9 L (32.0-37.0) g/dL Neutrophils # 8.44 H (1.80-7.70) 10*3/uL POC Glucose (mg/dL) 194 H (70-110) mg/dL Hemoglobin A1c 7.0 H (<=6.0) % Microbiology - Last 24 Hours (Table) 02/25/25 15:06 Gram Stain - Preliminary Hand - Right 02/25/25 15:08 Gram Stain - Preliminary Hand - Right 02/24/25 16:22 Blood Culture - Preliminary Blood Assessment and Plan Assessment: 1. Right thumb/palm cellulitis/abscess - Postop day 1 status post incision and drainage/irrigation and debridement right thumb/palm abscess Plan: 1. Right thumb/palm cellulitis/abscess -surgery performed yesterday, 02/25/2025 incision and drainage/irrigation and debridement right thumb/palm abscess. Dressing taken down at bedside this morning. Suture line intact. Dressing changed at bedside. Continue with IV antibiotics for now cultures pending. Appreciate ID recommendations. Patient encouraged to perform gentle range of motion exercises of right hand and digits. We will continue to follow patient during stay in the hospital. Plan for discharge home Monday. 2. Appreciate medical and ID management 3. Pain management - norco; tylenol 4. DVT prophylaxis - mechanical 5. GI prophylaxis - senna 6. PT/OT - Patient encouraged to perform gentle range of motion exercises of right hand and digits 7. Encourage incentive spirometer use 8. Discharge planning -plan for discharge home Monday Time with Patient: Less than 30
--- NOTE | 2025-02-26 15:25 | P.CONS ---
History of Present Illness - Reason for Consult Consult date: 02/26/25 - History of Present Illness This is a pleasant 74 year old female with medical history of diabetes mellitus, hypertension, hyperlipidemia, hypothyroidism, former smoker. Patient had a right thumb trigger release on January 24. Was healing well. On monday patient felt itching on the thumb. Took a benadryl and went to bed. In the morning on Monday woke up and the thumb was swollen and red. States since the surgery she has been able to move the digits on her right hand more. She came into the hospital admitted under orthopedics and is evaluated today on the observation unit postoperative day #1 I&D, irrigation and debridement of the right thumb and palm abscess. Surgical cultures were taken and pending. Patient is currently on IV vancomycin. ID following. Patient states the pain today is fairly well controlled. REVIEW OF SYSTEMS: CONSTITUTIONAL: No fever, no malaise, no fatigue. HEENT: No recent visual problems or hearing problems. Denied any sore throat. CARDIOVASCULAR: No chest pain, orthopnea, PND, no palpitations, no syncope. PULMONARY: No shortness of breath, no cough, no hemoptysis. GASTROINTESTINAL: No diarrhea, no nausea, no vomiting, no abdominal pain. NEUROLOGICAL: No headaches, no weakness, no numbness. HEMATOLOGICAL: Denies any bleeding or petechiae. GENITOURINARY: Denies any burning micturition, frequency, or urgency. MUSCULOSKELETAL/RHEUMATOLOGICAL: Denies any joint pain, swelling, or any muscle pain. ENDOCRINE: Denies any polyuria or polydipsia. The rest of the 14-point review of systems is negative. PHYSICAL EXAMINATION: GENERAL: The patient is alert and oriented x3, not in any acute distress. Well developed, well nourished. HEENT: Pupils are round and equally reacting to light. EOMI. No scleral icterus. No conjunctival pallor. Normocephalic, atraumatic. No pharyngeal erythema. No thyromegaly. CARDIOVASCULAR: S1 and S2 present. No murmurs, rubs, or gallops. PULMONARY: Chest is clear to auscultation, no wheezing or crackles. ABDOMEN: Soft, nontender, nondistended, normoactive bowel sounds. No palpable organomegaly. MUSCULOSKELETAL: No joint swelling or deformity. EXTREMITIES: No cyanosis, clubbing, or pedal edema. NEUROLOGICAL: Gross neurological examination did not reveal any focal deficits. SKIN: No rashes. As above. Dressing intact Assessment Right thumb infected surgical site with abscess and surrounding cellulitis postoperative day #1 I&D, irrigation and debridement of the right thumb and palm abscess Recent right thumb trigger release Diabetes Mellitus type 2 Hypertension Hyperlipidemia Hypothyroidism Former Smoker GI prophylaxis DVT prophylaxis as per primary Full Code Plan Pending surgical cultures ID on consultation Continue IV vancomycin Continue accuchecks ACHS and sliding scale insulin, Continue normal saline at 75 mls/hr Continue lisinopril Monitor electrolytes The impression and plan of care has been dictated by Chanell Shen, Nurse Practitioner as directed. Dr. Anca MD I have performed a history and physical examination and medical decision making of this patient, discussed the same with the dictator, and agree with the dictators assessment and plan as written, documented as a scribe. Based on total visit time, I have performed more than 50% of this visit. Past Medical History Past Medical History: Diabetes Mellitus, Hyperlipidemia, Hypertension, Osteoarth ritis (OA), Thyroid Disorder Additional Past Medical History / Comment(s): current anemia- states pcp instructed her to start iron supplement., states recent low blood sugars in the middle of the night - pt will inform her pcp. History of Any Multi-Drug Resistant Organisms: None Reported Past Surgical History: Appendectomy, Cholecystectomy, Heart Catheterization, Joint Replacement Additional Past Surgical History / Comment(s): idris carpal tunnel, sinus surgery, colonoscopies, heart cath (4 years ago) Past Anesthesia/Blood Transfusion Reactions: No Reported Reaction Past Psychological History: No Psychological Hx Reported Smoking Status: Former smoker Past Alcohol Use History: Occasional Additional Past Alcohol Use History / Comment(s): quit smoking 28 yrs ago, hx of less than 1 ppd, smoked approx 30 years Past Drug Use History: None Reported - Past Family History Mother Family Medical History: COPD Father Family Medical History: COPD Sister(s) Family Medical History: COPD Medications and Allergies Home Medications Medication Instructions Recorded Confirmed Type Acetaminophen [Tylenol Extra 1,000 mg PO HS PRN 03/09/23 02/24/25 History Strength] Atorvastatin Calcium 40 mg PO MOWEFR 03/09/23 02/24/25 History Cholecalciferol [Vitamin D3 (25 50 mcg PO DAILY 03/09/23 02/24/25 History Mcg = 1000 Iu)] Fish Oil/Dha/Epa [Fish Oil 1,200 1 cap PO DAILY 03/09/23 02/24/25 History mg Fish Oil] Levothyroxine Sodium [Synthroid] 125 mcg PO MOTUWETHFRSA 03/09/23 02/24/25 History Levothyroxine Sodium [Synthroid] 187.5 mcg PO BROWNE 03/09/23 02/24/25 History Magnesium 250 mg PO DAILY 03/09/23 02/24/25 History Multivit-Min/Iron/Folic/Lutein 1 tab PO DAILY 03/09/23 02/24/25 History [Centrum Silver Women Tablet] Prasterone (Dhea)/Calcium Carb 1 tab PO DAILY 03/09/23 02/24/25 History [Dhea 50 mg Tablet] glipiZIDE 5 mg PO DAILY 03/09/23 02/24/25 History lisinopriL [Zestril] 10 mg PO DAILY 03/09/23 02/24/25 History metFORMIN HCL [Glucophage] 1,000 mg PO DAILY 03/09/23 02/24/25 History Insulin Glargine,Hum.rec.anlog 48 units SQ HS 01/21/25 02/24/25 History [Lantus Solostar Pen] Semaglutide [Ozempic] 1 mg SQ SA 01/21/25 02/24/25 History Acetaminophen-Codeine 300-30mg 1 tab PO Q6H PRN #12 tablet 01/24/25 02/24/25 Rx [Tylenol w/codeine #3] Allergies Allergy/AdvReac Type Severity Reaction Status Date / Time cephalexin [From Keflex] Allergy Severe turned red Verified 02/24/25 17:05 all over Sulfa (Sulfonamide Allergy Severe turned red Verified 02/24/25 17:05 Antibiotics) all over grass pollen Allergy Unknown Rash/Hives Verified 02/24/25 17:05 adhesive tape Allergy blisters Verified 02/24/25 17:05 wood/sap Allergy Unknown Rash/Hives Uncoded 02/24/25 17:05 band aids AdvReac Unknown blisters Uncoded 02/24/25 17:05 Physical Exam Vitals: Vital Signs Temp Pulse Pulse Resp BP Pulse Ox 02/26/25 08:00 98.2 F 86 12 126/74 97 02/26/25 01:49 98.5 F 80 16 138/80 98 02/25/25 20:28 98.3 F 88 16 149/85 94 L 02/25/25 18:15 85 129/80 97 02/25/25 18:00 87 132/80 98 02/25/25 17:45 86 133/82 97 02/25/25 17:30 88 137/84 97 02/25/25 17:15 98.3 F 89 16 142/83 98 02/25/25 16:45 92 14 165/74 96 02/25/25 16:30 92 14 174/78 99 02/25/25 16:15 85 14 170/80 100 02/25/25 16:00 94 14 181/84 100 02/25/25 15:45 96 14 187/82 100 02/25/25 15:30 96 14 182/79 99 02/25/25 15:25 97.2 F L 100 14 182/79 99 02/25/25 13:55 98.3 F 85 16 167/72 98 02/25/25 13:22 98.6 F 82 18 159/89 Intake and Output 02/25/25 02/26/25 02/26/25 22:59 06:59 14:59 Output Total 2 Balance -2 Output: Estimated Blood Loss 2 Other: Voiding Method Toilet # Voids 2 1 Weight 94.347 kg Results CBC & Chem 7: 02/26/25 06:14 02/25/25 06:18 Labs: Abnormal Lab Results - Last 24 Hours (Table) 02/25/25 02/25/25 02/26/25 Range/Units 14:16 20:36 06:07 WBC (4.50-10.00) 10*3/uL Hgb (12.0-15.0) g/dL Hct (37.2-46.3) % MCV (80.0-97.0) fL MCH (27.0-32.0) pg MCHC (32.0-37.0) g/dL Neutrophils # (1.80-7.70) 10*3/uL POC Glucose (mg/dL) 177 H 242 H 150 H (70-110) mg/dL 02/26/25 Range/Units 06:14 WBC 10.71 H (4.50-10.00) 10*3/uL Hgb 11.0 L (12.0-15.0) g/dL Hct 34.5 L (37.2-46.3) % MCV 79.1 L (80.0-97.0) fL MCH 25.2 L (27.0-32.0) pg MCHC 31.9 L (32.0-37.0) g/dL Neutrophils # 8.44 H (1.80-7.70) 10*3/uL POC Glucose (mg/dL) (70-110) mg/dL Microbiology - Last 24 Hours (Table) 02/25/25 15:06 Gram Stain - Preliminary Hand - Right 02/25/25 15:08 Gram Stain - Preliminary Hand - Right 02/24/25 16:22 Blood Culture - Preliminary Blood Assessment and Plan Time with Patient: Less than 30
[2025-02-26 16:47] LABS: Glucose,Whole Blood 186 mg/dL (70-110)
[2025-02-26] MEDS: INSULIN GLARGINE (LANTUS) 100 UNIT/ML SYR SQ SCH (21:40)
[2025-02-26 21:47] LABS: Glucose,Whole Blood 242 mg/dL (70-110)
[2025-02-27 06:23] LABS: Basophils # (A) 0.06 10*3/uL (0.00-0.10); Basophils % (A) 0.8 %; Eosinophils # (A) 0.39 10*3/uL (0.04-0.35); Eosinophils % (A) 5.3 %; HCT 32.8 % (37.2-46.3); HGB 10.4 g/dL (12.0-15.0); Lymphocytes # (A) 1.93 10*3/uL (0.90-5.00); Lymphocytes % (A) 26.2 %; MCH 25.6 pg (27.0-32.0); MCHC 31.7 g/dL (32.0-37.0); MCV 80.8 fL (80.0-97.0); Monocytes # (A) 0.61 10*3/uL (0.20-1.00); Monocytes % (A) 8.3 %; Neutrophils # (A) 4.34 10*3/uL (1.80-7.70); Neutrophils % (A) 59.0 %; Platelet Count 177 10*3/uL (140-440); RBC 4.06 10*6/uL (4.10-5.20); RDW 14.0 % (11.5-14.5); WBC 7.36 10*3/uL (4.50-10.00)
[2025-02-27] MEDS: glipiZIDE 5 MG TAB PO SCH (06:31)
[2025-02-27 06:40] LABS: Glucose,Whole Blood 149 mg/dL (70-110)
[2025-02-27 06:47] LABS: African American GFR (CKD) 86 (>60 ml/min/1.73 sqM); Anion Gap 8 mmol/L; Blood Urea Nitrogen 13 mg/dL (7-17); Calcium 8.8 mg/dL (8.4-10.2); Carbon Dioxide 26 mmol/L (22-30); Chloride 105 mmol/L (98-107); Glucose 153 mg/dL (74-99); Non-African American GFR(CKD) 75 (>60 ml/min/1.73 sqM); Potassium 4.2 mmol/L (3.5-5.1); Sodium 139 mmol/L (137-145)
--- NOTE | 2025-02-27 07:22 | P.PN ---
Subjective Progress Note Date: 02/26/25 Principal diagnosis: Reason for follow-up is right thumb/hand abscess and cellulitis Patient is a 74-year-old female with a past medical history significant for Diabetes Mellitus, Hyperlipidemia, Hypertension, Osteoarthritis (OA), Thyroid Disorder, patient also have a recent history of right trigger thumb release on 01/24/2025 now presenting the hospital with the right thumb as well as dorsum of the hand swelling redness concerning for right hand abscess and cellulitis in this patient is status post I&D and debridement of the right thumb and palm abscess. On today's evaluation that is 02/26/2025,the patient denies any fever or any chills, patient is breathing comfortably on room air, the patient denies chest pain shortness of breath and no significant cough, patient denies abdominal pain, no nausea vomiting or diarrhea. Pain to right hand has slightly decreased intensity. Patient white count is down to 10.71 creatinine 0.63 cultures currently pending Objective - Vital Signs Vital signs: Vital Signs Temp 98.2 F 02/26/25 08:00 Pulse 86 02/26/25 08:00 Resp 12 02/26/25 08:00 BP 126/74 02/26/25 08:00 Pulse Ox 97 02/26/25 08:00 FiO2 Intake & Output 02/25/25 02/26/25 02/26/25 18:59 06:59 18:59 Intake Total 701 Output Total 2 Balance 699 Weight 94.347 kg Intake: IV 701 Output: Estimated Blood Loss 2 Other: Voiding Method Toilet # Voids 2 1 - Exam GENERAL DESCRIPTION: An elderly female up in bed in no distress RESPIRATORY SYSTEM: Unlabored breathing , decreased breath sounds at bases HEART: S1 S2 regular rate and rhythm , ABDOMEN: Soft , no tenderness EXTREMITIES: Right hand is currently dressed no drainage on the dressing - Labs CBC & Chem 7: 02/27/25 05:42 02/27/25 05:42 Labs: Abnormal Lab Results - Last 24 Hours (Table) 02/25/25 02/25/25 02/26/25 Range/Units 14:16 20:36 06:07 WBC (4.50-10.00) 10*3/uL Hgb (12.0-15.0) g/dL Hct (37.2-46.3) % MCV (80.0-97.0) fL MCH (27.0-32.0) pg MCHC (32.0-37.0) g/dL Neutrophils # (1.80-7.70) 10*3/uL POC Glucose (mg/dL) 177 H 242 H 150 H (70-110) mg/dL Hemoglobin A1c (<=6.0) % 02/26/25 02/26/25 02/26/25 Range/Units 06:14 06:14 11:06 WBC 10.71 H (4.50-10.00) 10*3/uL Hgb 11.0 L (12.0-15.0) g/dL Hct 34.5 L (37.2-46.3) % MCV 79.1 L (80.0-97.0) fL MCH 25.2 L (27.0-32.0) pg MCHC 31.9 L (32.0-37.0) g/dL Neutrophils # 8.44 H (1.80-7.70) 10*3/uL POC Glucose (mg/dL) 194 H (70-110) mg/dL Hemoglobin A1c 7.0 H (<=6.0) % Microbiology - Last 24 Hours (Table) 02/25/25 15:06 Gram Stain - Preliminary Hand - Right 02/25/25 15:08 Gram Stain - Preliminary Hand - Right 02/24/25 16:22 Blood Culture - Preliminary Blood Assessment and Plan (1) Cellulitis of thumb, right Current Visit: Yes Status: Acute Code(s): L03.011 - CELLULITIS OF RIGHT FINGER SNOMED Code(s): 65361927158492221 (2) Surgical site infection Current Visit: Yes Status: Acute Code(s): T81.49XA - INFECTION FOLLOWING A PROCEDURE, OTHER SURGICAL SITE, INIT SNOMED Code(s): 73809137 Plan: 1patient presented to hospital with right hand cellulitis in this patient who did have a history of right thumb trigger release on 01/24/2025 now presenting with increasing swelling or redness and some drainage at the base of the right thumb concerning for cellulitis and possible abscess and likely from gram-positi ve skin sara. 2patient with multiple antibiotic ALLERGIES that would limit the number of antibiotic safe to use 3-patient is status post surgical drainage and deep culture which are currently pending 4-patient is currently being treated vancomycin pharmacy to dose while waiting for the culture to finalize and will likely need IV antibiotic on discharge Dictation was produced using [employer] dictation software. please excuse any grammatical, word or spelling errors. Time with Patient: Less than 30
[2025-02-27] MEDS: VANCOMYCIN TROUGH DUE 1 EACH MISC MISCELLANE ONE (09:38)
[2025-02-27 11:36] LABS: Glucose,Whole Blood 169 mg/dL (70-110)
--- NOTE | 2025-02-27 12:03 | P.PN ---
Subjective Progress Note Date: 02/27/25 Principal diagnosis: Right thumb/palm cellulitis/abscess Postoperative Diagnosis: Same Procedure(s) Performed: Incision and drainage/irrigation and debridement right thumb/palm abscess Patient was seen at bedside this morning sitting up in bed with dressing present over right hand. Patient says she is having some pain at this time but is controlled with oral medication. Patient currently on IV Vanco. ID following. Cultures pending at this time. Patient states she does feel some improved sensation along the digits in her hand since surgery was performed. Patient also mentions the swelling seems to be improving a little bit as well as pain. Objective - Vital Signs Vital signs: Vital Signs Temp 97.8 F 02/27/25 08:00 Pulse 70 02/27/25 08:00 Resp 16 02/27/25 08:00 BP 137/78 02/27/25 08:00 Pulse Ox 98 02/27/25 08:00 FiO2 Intake & Output 02/26/25 02/27/25 02/27/25 18:59 06:59 18:59 Intake Total 900 Balance 900 Intake: Intake, IV Titration 900 Amount Sodium Chloride 0.9% 1, 900 000 ml @ 75 mls/hr IV . [id number] [facility] Rx#:[id number] Other: Voiding Method Toilet Toilet # Voids 2 # Bowel Movements 1 - Exam Dressing was taken down over right hand/wrist this morning. Negative for any active drainage from incision. There does appear to be some moderate swelling and erythema over the first webspace in the right palm. There also does appear to be a little bit of erythema extending into the right wrist on the palmar aspect. Sensation is equal, symmetric, by intact on exam. Patient does have limited range of motion throughout digits 1 through 5 on exam secondary to pain stiffness and swelling. 4-/5 in right wrist on exam. 4/5 in right elbow and right shoulder. Radial pulse intact, 2+ bilaterally. Cap refill under 2 seconds in digits of upper extremities. - Labs CBC & Chem 7: 02/27/25 05:42 02/27/25 05:42 Labs: Abnormal Lab Results - Last 24 Hours (Table) 02/26/25 02/26/25 02/27/25 Range/Units 16:45 21:39 05:42 RBC 4.06 L (4.10-5.20) 10*6/uL Hgb 10.4 L (12.0-15.0) g/dL Hct 32.8 L (37.2-46.3) % MCH 25.6 L (27.0-32.0) pg MCHC 31.7 L (32.0-37.0) g/dL Eosinophils # 0.39 H (0.04-0.35) 10*3/uL Glucose (74-99) mg/dL POC Glucose (mg/dL) 186 H 242 H (70-110) mg/dL 02/27/25 02/27/25 02/27/25 Range/Units 05:42 06:30 11:34 RBC (4.10-5.20) 10*6/uL Hgb (12.0-15.0) g/dL Hct (37.2-46.3) % MCH (27.0-32.0) pg MCHC (32.0-37.0) g/dL Eosinophils # (0.04-0.35) 10*3/uL Glucose 153 H (74-99) mg/dL POC Glucose (mg/dL) 149 H 169 H (70-110) mg/dL Microbiology - Last 24 Hours (Table) 02/24/25 16:22 Blood Culture - Preliminary Blood 02/25/25 15:08 Gram Stain - Preliminary Hand - Right Wound Culture - Preliminary Presumptive MRSA 02/25/25 15:06 Gram Stain - Preliminary Hand - Right Wound Culture - Preliminary Presumptive MRSA Assessment and Plan Assessment: 1. Right thumb/palm cellulitis/abscess - Postop day 2 status post incision and drainage/irrigation and debridement right thumb/palm abscess Plan: 1. Right thumb/palm cellulitis/abscess -surgery performed 02/25/2025 incision and drainage/irrigation and debridement right thumb/palm abscess. Dressing taken down at bedside this morning. Sutures intact. Continue with IV antibiotics for now cultures showing presumptive MRSA. Appreciate ID recommendations. Medicine ordered PICC line to be placed. Patient encouraged to perform gentle range of motion exercises of right hand and digits. We will continue to follow patient during stay in the hospital. Plan for discharge home Monday. 2. Appreciate medical and ID management 3. Pain management - norco; tylenol 4. DVT prophylaxis - mechanical 5. GI prophylaxis - senna 6. PT/OT - Patient encouraged to perform gentle range of motion exercises of right hand and digits 7. Encourage incentive spirometer use 8. Discharge planning -plan for discharge home Monday Time with Patient: Less than 30
--- NOTE | 2025-02-27 14:59 | P.PN ---
Subjective Progress Note Date: 02/27/25 This is a pleasant 74 year old female with medical history of diabetes mellitus, hypertension, hyperlipidemia, hypothyroidism, former smoker. Patient had a right thumb trigger release on January 24. Was healing well. On monday patient felt itching on the thumb. Took a benadryl and went to bed. In the morning on Monday woke up and the thumb was swollen and red. States since the surgery she has been able to move the digits on her right hand more. She came into the hospital admitted under orthopedics and is evaluated today on the observation unit postoperative day #1 I&D, irrigation and debridement of the right thumb and palm abscess. Surgical cultures were taken and pending. Patient is currently on IV vancomycin. ID following. Patient states the pain today is fairly well controlled. 02/27/2025 Patient is evaluated today in follow up on the medical floor. Patient is postoperative day #2 I&D and irrigation and debridement of the right thumb and palm abscess. Patient dressing removed at bedside today by Dr. Nava and healing well. Cultures are growing presumptive MRSA and patient continues on IV vancyomcin. PICC line has been ordered. REVIEW OF SYSTEMS: CONSTITUTIONAL: No fever, no malaise, no fatigue. HEENT: No recent visual problems or hearing problems. Denied any sore throat. CARDIOVASCULAR: No chest pain, orthopnea, PND, no palpitations, no syncope. PULMONARY: No shortness of breath, no cough, no hemoptysis. GASTROINTESTINAL: No diarrhea, no nausea, no vomiting, no abdominal pain. NEUROLOGICAL: No headaches, no weakness, no numbness. PHYSICAL EXAMINATION: GENERAL: The patient is alert and oriented x3, not in any acute distress. Well developed, well nourished. HEENT: Pupils are round and equally reacting to light. EOMI. No scleral icterus. No conjunctival pallor. Normocephalic, atraumatic. No pharyngeal erythema. No thyromegaly. CARDIOVASCULAR: S1 and S2 present. No murmurs, rubs, or gallops. PULMONARY: Chest is clear to auscultation, no wheezing or crackles. ABDOMEN: Soft, nontender, nondistended, normoactive bowel sounds. No palpable organomegaly. MUSCULOSKELETAL: No joint swelling or deformity. EXTREMITIES: No cyanosis, clubbing, or pedal edema. NEUROLOGICAL: Gross neurological examination did not reveal any focal deficits. SKIN: No rashes. As above. Dressing intact Assessment Right thumb infected surgical site with abscess and surrounding cellulitis postoperative day #1 I&D, irrigation and debridement of the right thumb and palm abscess Recent right thumb trigger release Diabetes Mellitus type 2 Hypertension Hyperlipidemia Hypothyroidism Former Smoker GI prophylaxis DVT prophylaxis as per primary Full Code Plan Pending surgical cultures which are showing presumptive MRSA and PICC Line has been ordered for DC antibiotics ID on consultation Continue IV vancomycin Continue accuchecks ACHS and sliding scale insulin, Continue normal saline at 75 mls/hr Continue lisinopril Monitor electrolytes The impression and plan of care has been dictated by hCanell Shen, Nurse Practitioner as directed. Dr. Anca MD I have performed a history and physical examination and medical decision making of this patient, discussed the same with the dictator, and agree with the dictators assessment and plan as written, documented as a scribe. Based on total visit time, I have performed more than 50% of this visit. Objective - Vital Signs Vital signs: Vital Signs Temp 98.0 F 02/27/25 14:28 Pulse 89 02/27/25 14:28 Resp 16 02/27/25 08:00 BP 139/80 02/27/25 14:28 Pulse Ox 98 02/27/25 14:28 FiO2 Intake & Output 02/26/25 02/27/25 02/27/25 18:59 06:59 18:59 Intake Total 900 Balance 900 Intake: Intake, IV Titration 900 Amount Sodium Chloride 0.9% 1, 900 000 ml @ 75 mls/hr IV . [id number] [facility] Rx#:[id number] Other: Voiding Method Toilet Toilet # Voids 2 # Bowel Movements 1 - Labs CBC & Chem 7: 02/27/25 05:42 02/27/25 05:42 Labs: Abnormal Lab Results - Last 24 Hours (Table) 02/26/25 02/26/25 02/27/25 Range/Units 16:45 21:39 05:42 RBC 4.06 L (4.10-5.20) 10*6/uL Hgb 10.4 L (12.0-15.0) g/dL Hct 32.8 L (37.2-46.3) % MCH 25.6 L (27.0-32.0) pg MCHC 31.7 L (32.0-37.0) g/dL Eosinophils # 0.39 H (0.04-0.35) 10*3/uL Glucose (74-99) mg/dL POC Glucose (mg/dL) 186 H 242 H (70-110) mg/dL 02/27/25 02/27/25 02/27/25 Range/Units 05:42 06:30 11:34 RBC (4.10-5.20) 10*6/uL Hgb (12.0-15.0) g/dL Hct (37.2-46.3) % MCH (27.0-32.0) pg MCHC (32.0-37.0) g/dL Eosinophils # (0.04-0.35) 10*3/uL Glucose 153 H (74-99) mg/dL POC Glucose (mg/dL) 149 H 169 H (70-110) mg/dL Microbiology - Last 24 Hours (Table) 02/24/25 16:22 Blood Culture - Preliminary Blood 02/25/25 15:08 Gram Stain - Preliminary Hand - Right Wound Culture - Preliminary Presumptive MRSA 02/25/25 15:06 Gram Stain - Preliminary Hand - Right Wound Culture - Preliminary Presumptive MRSA Assessment and Plan Time with Patient: Less than 30
[2025-02-27 16:36] LABS: Glucose,Whole Blood 170 mg/dL (70-110)
--- NOTE | 2025-02-27 17:40 | P.PN ---
Subjective Progress Note Date: 02/27/25 Reason for follow-up is right thumb/hand abscess and cellulitis Patient is a 74-year-old female with a past medical history significant for Diabetes Mellitus, Hyperlipidemia, Hypertension, Osteoarthritis (OA), Thyroid Disorder, patient also have a recent history of right trigger thumb release on 01/24/2025 now presenting the hospital with the right thumb as well as dorsum of the hand swelling redness concerning for right hand abscess and cellulitis in this patient is status post I&D and debridement of the right thumb and palm abscess. On today's evaluation that is 02/27/2025,the patient denies any fever or any chills, patient is breathing comfortably on room air, the patient denies chest pain shortness of breath and no significant cough, patient denies abdominal pain, no nausea vomiting or diarrhea. Pain to right hand has stabilized intensity. Patient white count is down to 7.36, creatinine 0.79 cultures currently pending, presumptive MRSA Objective - Vital Signs Vital signs: Vital Signs Temp 97.8 F 02/27/25 08:00 Pulse 70 02/27/25 08:00 Resp 16 02/27/25 08:00 BP 137/78 02/27/25 08:00 Pulse Ox 98 02/27/25 08:00 FiO2 Intake & Output 02/26/25 02/27/25 02/27/25 18:59 06:59 18:59 Intake Total 900 Balance 900 Intake: Intake, IV Titration 900 Amount Sodium Chloride 0.9% 1, 900 000 ml @ 75 mls/hr IV . [id number] [facility] Rx#:[id number] Other: Voiding Method Toilet Toilet # Voids 2 # Bowel Movements 1 - Exam GENERAL DESCRIPTION: An elderly female up in bed in no distress RESPIRATORY SYSTEM: Unlabored breathing , decreased breath sounds at bases HEART: S1 S2 regular rate and rhythm , ABDOMEN: Soft , no tenderness EXTREMITIES: Right hand is currently dressed no drainage on the dressing - Labs CBC & Chem 7: 02/27/25 05:42 02/27/25 05:42 Labs: Abnormal Lab Results - Last 24 Hours (Table) 02/26/25 02/26/25 02/26/25 Range/Units 06:14 11:06 16:45 RBC (4.10-5.20) 10*6/uL Hgb (12.0-15.0) g/dL Hct (37.2-46.3) % MCH (27.0-32.0) pg MCHC (32.0-37.0) g/dL Eosinophils # (0.04-0.35) 10*3/uL Glucose (74-99) mg/dL POC Glucose (mg/dL) 194 H 186 H (70-110) mg/dL Hemoglobin A1c 7.0 H (<=6.0) % 02/26/25 02/27/25 02/27/25 Range/Units 21:39 05:42 05:42 RBC 4.06 L (4.10-5.20) 10*6/uL Hgb 10.4 L (12.0-15.0) g/dL Hct 32.8 L (37.2-46.3) % MCH 25.6 L (27.0-32.0) pg MCHC 31.7 L (32.0-37.0) g/dL Eosinophils # 0.39 H (0.04-0.35) 10*3/uL Glucose 153 H (74-99) mg/dL POC Glucose (mg/dL) 242 H (70-110) mg/dL Hemoglobin A1c (<=6.0) % 02/27/25 Range/Units 06:30 RBC (4.10-5.20) 10*6/uL Hgb (12.0-15.0) g/dL Hct (37.2-46.3) % MCH (27.0-32.0) pg MCHC (32.0-37.0) g/dL Eosinophils # (0.04-0.35) 10*3/uL Glucose (74-99) mg/dL POC Glucose (mg/dL) 149 H (70-110) mg/dL Hemoglobin A1c (<=6.0) % Microbiology - Last 24 Hours (Table) 02/24/25 16:22 Blood Culture - Preliminary Blood 02/25/25 15:08 Gram Stain - Preliminary Hand - Right Wound Culture - Preliminary Presumptive MRSA 02/25/25 15:06 Gram Stain - Preliminary Hand - Right Wound Culture - Preliminary Presumptive MRSA Assessment and Plan (1) Cellulitis of thumb, right Current Visit: Yes Status: Acute Code(s): L03.011 - CELLULITIS OF RIGHT FINGER SNOMED Code(s): 86352209019080368 (2) Surgical site infection Current Visit: Yes Status: Acute Code(s): T81.49XA - INFECTION FOLLOWING A PROCEDURE, OTHER SURGICAL SITE, INIT SNOMED Code(s): 41492831 Plan: 1patient presented to hospital with right hand cellulitis in this patient who did have a history of right thumb trigger release on 01/24/2025 now presenting with increasing swelling or redness and some drainage at the base of the right thumb concerning for cellulitis and possible abscess and likely from gram- positive skin sara. 2patient with multiple antibiotic ALLERGIES that would limit the number of antibiotic safe to use 3-patient is status post surgical drainage and deep culture which are currently pending, presumptive MRSA 4-patient is currently being treated vancomycin pharmacy to dose while waiting for the culture to finalize and will likely need IV antibiotic on discharge. Plan PICC line today or tomorrow. Daniel Baird MD Internal Medicine Resident, PGY2 Infectious disease service Patient was personally seen and examined care discussed in detail with the resident physician documentation reviewed and agree, patient overall pain to the right thumb area has decreased intensity no drainage cultures are growing MRSA PICC line has been ordered recommended to a course of IV vancomycin pharmacy to dose and close outpatient follow-up patsy greer MD Dictation was produced using [employer] dictation software. please excuse any grammatical, word or spelling errors. Time with Patient: Less than 30
[2025-02-27 20:34] LABS: Glucose,Whole Blood 228 mg/dL (70-110)
[2025-02-28 07:40] LABS: Glucose,Whole Blood 139 mg/dL (70-110)
[2025-02-28 07:59] VITALS: BP 154/75; PULSE 90; RESP 16; TEMP 98.3
[2025-02-28] MEDS: HYDROmorphone 1 MG/ML 1 ML SYRINGE IVP STA (09:25)
--- NOTE | 2025-02-28 09:44 | P.PN ---
Subjective Progress Note Date: 02/28/25 Principal diagnosis: Right thumb/palm cellulitis/abscess Postoperative Diagnosis: Same Procedure(s) Performed: Incision and drainage/irrigation and debridement right thumb/palm abscess Patient was seen at bedside this morning sitting up on 5N in bed with dressing present over right hand. Patient says she is having some pain at this time but is controlled with oral medication. Patient currently on IV Vanco. ID following. Cultures showing MRSA. Patient states she does feel some improved sensation along the digits in her hand since surgery was performed. Patient also mentions the swelling seems to be improving a little bit as well as pain. Objective - Vital Signs Vital signs: Vital Signs Temp 98.3 F 02/28/25 07:18 Pulse 90 02/28/25 07:18 Resp 16 02/28/25 07:18 BP 154/75 02/28/25 07:18 Pulse Ox 96 02/28/25 07:18 FiO2 Intake & Output 02/27/25 02/28/25 02/28/25 18:59 06:59 18:59 Intake Total 580 Balance 580 Intake: Oral 580 Other: Voiding Method Toilet # Voids 1 - Exam Dressing was taken down over right hand/wrist this morning. Some purulent discharge expressed from incision. There does appear to be some moderate swelling and erythema that has localized over the first webspace in the right palm. Sensation is equal, symmetric, by intact on exam. Patient does have limited range of motion throughout digits 1 through 5 on exam secondary to pain stiffness and swelling. 4-/5 in right wrist on exam. 4/5 in right elbow and right shoulder. Radial pulse intact, 2+ bilaterally. Cap refill under 2 seconds in digits of upper extremities. - Labs CBC & Chem 7: 02/27/25 05:42 02/27/25 05:42 Labs: Abnormal Lab Results - Last 24 Hours (Table) 02/27/25 02/27/25 02/27/25 Range/Units 11:34 16:34 20:34 POC Glucose (mg/dL) 169 H 170 H 228 H (70-110) mg/dL 02/28/25 Range/Units 07:22 POC Glucose (mg/dL) 139 H (70-110) mg/dL Microbiology - Last 24 Hours (Table) 02/25/25 15:08 Anaerobic Culture - Preliminary Hand - Right 02/25/25 15:06 Anaerobic Culture - Preliminary Hand - Right 02/24/25 16:22 Blood Culture - Preliminary Blood 02/25/25 15:06 Gram Stain - Final Hand - Right Wound Culture - Final Methicillin resist S. aureus 02/25/25 15:08 Gram Stain - Final Hand - Right Wound Culture - Final Methicillin resist S. aureus Assessment and Plan Assessment: 1. Right thumb/palm cellulitis/abscess - Postop day 3 status post incision and drainage/irrigation and debridement right thumb/palm abscess Plan: 1. Right thumb/palm cellulitis/abscess -surgery performed 02/25/2025 incision and drainage/irrigation and debridement right thumb/palm abscess. Dressing taken down at bedside this morning. Sutures intact. Continue with IV antibiotics for now cultures showing MRSA. Appreciate ID recommendations. Medicine ordered PICC line to be placed. Patient encouraged to perform gentle range of motion exercises of right hand and digits. We will continue to follow patient during stay in the hospital. Discharge home today. 2. Appreciate medical and ID management 3. Pain management - norco; tylenol 4. DVT prophylaxis - mechanical 5. GI prophylaxis - senna 6. PT/OT - Patient encouraged to perform gentle range of motion exercises of right hand and digits 7. Encourage incentive spirometer use 8. Discharge planning -discharge home today pending PICC line placement Time with Patient: Less than 30
--- NOTE | 2025-02-28 09:52 | P.DS ---
Providers Date of admission: 02/24/25 14:22 Expected date of discharge: 02/28/25 Attending physician: Paramjit Nava Consults: 02/25/25 09:58 Consult Physician Routine Consulting Provider: Margret Rosales Consult Reason/Comments: ID management right hand infection Do you want consulting provider notified?: Yes 02/25/25 21:14 Consult Physician Routine Consulting Provider: Benito March Consult Reason/Comments: medical management Do you want consulting provider notified?: Yes Primary care physician: [facility] Course: Date of admission: 02/24/2025 Date of discharge: 02/28/2025 Admission diagnosis: Right thumb/palm cellulitis/abscess Discharge diagnosis: Same Attending physician: Dr. Nava Surgical procedures: Incision and drainage/irrigation debridement right thumb/palm abscess Brief history: Patient is a 74-year-old female with a history of right thumb/palm cellulitis/abscess. At this point patient has failed conservative treatment measures and has opted to proceed with a elective incision and drainage/irrigation debridement right thumb/palm abscess. Hospital course: Details of patient's surgery can be found in operative report. Patient tolerated the procedure well and was subsequently transported to orthopedic floor. Patient's orthopeidc and medical care was provided daily. Patient had daily laboratory tests performed for evaluation of overall blood counts. Patient had daily physical therapy to include strengthening range of motion as well as education with walker ambulation. Patient was noted to have a relatively uneventful postoperative course. Patient reported satisfactory pain control with oral pain medications by postoperative day 3. Patient showed satisfactory progress with physical therapy. Patient moved steadily through the program and had no difficulty meeting the goals by postoperative day 3. Given patient's otherwise satisfactory course and having met physical therapy goals, plan is to discharge patient home on postoperative day 3. Discharge condition/disposition: Patient will be discharged home in stable condition. Discharge medications: Instructions are given on resumption of patient's normal daily medications per primary care recommendation, in addition patient will be prescribed [place]; senna. Discharge instructions: 1. Wound care and infection precautions, keep incision dry and covered while showering, no lotions, creams, moisturizers. No soaking, tubs, pools, hottubs. Do not scrub over the incision. 2. Weight-bear as tolerated with walker / cane until follow-up. 3. Ice and elevate when necessary. Do not exceed 20 minutes per hour with ice pack. 4. Perform gentle range of motion exercises of the digits of the right hand as well as the right wrist. 5. Pain meds per prescription. 6. Pain medication has potential to cause constipation. Increase oral fluid and fiber intake. Contact primary care provider if you have not had a bowel movement within 48 hours after discharge 7. Follow up in office on 03/03/[address] Nava 8. Follow up with your primary care doctor 7-10 days after discharge. 9. Contact [facility] with any questions, . Assessment: Right thumb/palm cellulitis/abscess Procedures: incision and drainage/irrigation and debridement right thumb/palm abscess Patient Condition at Discharge: Good Plan - Discharge Summary New Discharge Prescriptions: New Sennosides/Docusate Sodium [Senna Plus 8.6-50 mg Softgel] 1 each PO DAILY #20 capsule HYDROcodone/APAP 7.5-325MG [[place] 7.5-325] 1 tab PO Q6HR PRN #28 tab PRN Reason: Pain Continue Levothyroxine Sodium [Synthroid] 125 mcg PO MOTUWETHFRSA Atorvastatin Calcium 40 mg PO MOWEFR Magnesium 250 mg PO DAILY Multivit-Min/Iron/Folic/Lutein [Centrum Silver Women Tablet] 1 tab PO DAILY Levothyroxine Sodium [Synthroid] 187.5 mcg PO BROWNE Cholecalciferol [Vitamin D3 (25 Mcg = 1000 Iu)] 50 mcg PO DAILY Insulin Glargine,Hum.rec.anlog [Lantus Solostar Pen] 48 units SQ HS metFORMIN HCL [Glucophage] 1,000 mg PO DAILY lisinopriL [Zestril] 10 mg PO DAILY glipiZIDE 5 mg PO DAILY Prasterone (Dhea)/Calcium Carb [Dhea 50 mg Tablet] 1 tab PO DAILY Fish Oil/Dha/Epa [Fish Oil 1,200 mg Fish Oil] 1 cap PO DAILY Acetaminophen [Tylenol Extra Strength] 1,000 mg PO HS PRN PRN Reason: Pain Semaglutide [Ozempic] 1 mg SQ SA No Action Acetaminophen-Codeine 300-30mg [Tylenol w/codeine #3] 1 tab PO Q6H PRN #12 tablet PRN Reason: Pain Discharge Medication List Acetaminophen [Tylenol Extra Strength] 1,000 mg PO HS PRN 03/09/23 [History] Atorvastatin Calcium 40 mg PO MOWEFR 03/09/23 [History] Cholecalciferol [Vitamin D3 (25 Mcg = 1000 Iu)] 50 mcg PO DAILY 03/09/23 [History] Fish Oil/Dha/Epa [Fish Oil 1,200 mg Fish Oil] 1 cap PO DAILY 03/09/23 [History] Levothyroxine Sodium [Synthroid] 125 mcg PO MOTUWETHFRSA 03/09/23 [History] Levothyroxine Sodium [Synthroid] 187.5 mcg PO BROWNE 03/09/23 [History] Magnesium 250 mg PO DAILY 03/09/23 [History] Multivit-Min/Iron/Folic/Lutein [Centrum Silver Women Tablet] 1 tab PO DAILY 03/09/23 [History] Prasterone (Dhea)/Calcium Carb [Dhea 50 mg Tablet] 1 tab PO DAILY 03/09/23 [History] glipiZIDE 5 mg PO DAILY 03/09/23 [History] lisinopriL [Zestril] 10 mg PO DAILY 03/09/23 [History] metFORMIN HCL [Glucophage] 1,000 mg PO DAILY 03/09/23 [History] Insulin Glargine,Hum.rec.anlog [Lantus Solostar Pen] 48 units SQ HS 01/21/25 [History] Semaglutide [Ozempic] 1 mg SQ SA 01/21/25 [History] Acetaminophen-Codeine 300-30mg [Tylenol w/codeine #3] 1 tab PO Q6H PRN #12 tablet 01/24/25 [Rx] HYDROcodone/APAP 7.5-325MG [[place] 7.5-325] 1 tab PO Q6HR PRN #28 tab 02/28/25 [Rx] Sennosides/Docusate Sodium [Senna Plus 8.6-50 mg Softgel] 1 each PO DAILY #20 capsule 02/28/25 [Rx] Follow up Appointment(s)/Referral(s): Stacie Jolly DO [Primary Care Provider] - 1-2 days Margret Rosales MD [STAFF PHYSICIAN] - 1 Week Paramjit Nava MD [STAFF PHYSICIAN] - 03/03/25 Ambulatory/Diagnostic Orders: C Reactive Protein [LAB.AMB] Location: None Selected Complete Blood Count w/diff [LAB.AMB] Time Frame: 3 Days, Location: None Selected Activity/Diet/Wound Care/Special Instructions: Discharge instructions: 1. Wound care and infection precautions, keep incision dry and covered while showering, no lotions, creams, moisturizers. No soaking, tubs, pools, hottubs. Do not scrub over the incision. 2. Weight-bear as tolerated with walker / cane until follow-up. 3. Ice and elevate when necessary. Do not exceed 20 minutes per hour with ice pack. 4. Perform gentle range of motion exercises of the digits of the right hand as well as the right wrist. 5. Pain meds per prescription. 6. Pain medication has potential to cause constipation. Increase oral fluid and fiber intake. Contact primary care provider if you have not had a bowel movement within 48 hours after discharge 7. Follow up in office on 03/03/[address] Nava 8. Follow up with your primary care doctor 7-10 days after discharge. 9. Contact [facility] with any questions, . Discharge Disposition: HOME SELF-CARE
[2025-02-28 12:41] LABS: Glucose,Whole Blood 129 mg/dL (70-110)
--- NOTE | 2025-02-28 14:41 | P.PN ---
Subjective Progress Note Date: 02/28/25 This is a pleasant 74 year old female with medical history of diabetes mellitus, hypertension, hyperlipidemia, hypothyroidism, former smoker. Patient had a right thumb trigger release on January 24. Was healing well. On monday patient felt itching on the thumb. Took a benadryl and went to bed. In the morning on Monday woke up and the thumb was swollen and red. States since the surgery she has been able to move the digits on her right hand more. She came into the hospital admitted under orthopedics and is evaluated today on the observation unit postoperative day #1 I&D, irrigation and debridement of the right thumb and palm abscess. Surgical cultures were taken and pending. Patient is currently on IV vancomycin. ID following. Patient states the pain today is fairly well controlled. 02/27/2025 Patient is evaluated today in follow up on the medical floor. Patient is postoperative day #2 I&D and irrigation and debridement of the right thumb and palm abscess. Patient dressing removed at bedside today by Dr. Nava and healing well. Cultures are growing presumptive MRSA and patient continues on IV vancyomcin. PICC line has been ordered. 02/28/2025 Was evaluated in follow-up in the medical floor. Patient is currently postoperative day #3 I&D and irrigation and debridement of her right thumb and pulmonary abscess. Cultures are growing MRSA. Patient was having some slight purulent drainage from the incision line which was milked out by the orthopedic doctor. Patient was having significant mount of pain to her right hand today and received a dose of IV Dilaudid for this. Patient received PICC line and will be discharging on a course of IV vancomycin with close follow-up with infe ctious disease and orthopedics on discharge. REVIEW OF SYSTEMS: CONSTITUTIONAL: No fever, no malaise, no fatigue. HEENT: No recent visual problems or hearing problems. Denied any sore throat. CARDIOVASCULAR: No chest pain, orthopnea, PND, no palpitations, no syncope. PULMONARY: No shortness of breath, no cough, no hemoptysis. GASTROINTESTINAL: No diarrhea, no nausea, no vomiting, no abdominal pain. NEUROLOGICAL: No headaches, no weakness, no numbness. PHYSICAL EXAMINATION: GENERAL: The patient is alert and oriented x3, not in any acute distress. Well developed, well nourished. HEENT: Pupils are round and equally reacting to light. EOMI. No scleral icterus. No conjunctival pallor. Normocephalic, atraumatic. No pharyngeal erythema. No thyromegaly. CARDIOVASCULAR: S1 and S2 present. No murmurs, rubs, or gallops. PULMONARY: Chest is clear to auscultation, no wheezing or crackles. ABDOMEN: Soft, nontender, nondistended, normoactive bowel sounds. No palpable organomegaly. MUSCULOSKELETAL: No joint swelling or deformity. EXTREMITIES: No cyanosis, clubbing, or pedal edema. NEUROLOGICAL: Gross neurological examination did not reveal any focal deficits. SKIN: No rashes. As above. Dressing intact Assessment Right thumb infected surgical site with abscess and surrounding cellulitis postoperative day #1 I&D, irrigation and debridement of the right thumb and palm abscess Recent right thumb trigger release Diabetes Mellitus type 2 Hypertension Hyperlipidemia Hypothyroidism Former Smoker GI prophylaxis DVT prophylaxis as per primary Full Code Plan Pending surgical cultures which are showing MRSA PICC Line has been placed and patient to be discharged on IV vancomycin for course of IV antibiotics Continue accuchecks ACHS and sliding scale insulin, Continue lisinopril Monitor electrolytes The impression and plan of care has been dictated by Chanell Shen Nurse Practitioner as directed. Dr. Anca MD I have performed a history and physical examination and medical decision making of this patient, discussed the same with the dictator, and agree with the dictators assessment and plan as written, documented as a scribe. Based on total visit time, I have performed more than 50% of this visit. Objective - Vital Signs Vital signs: Vital Signs Temp 98.3 F 02/28/25 07:18 Pulse 90 02/28/25 07:18 Resp 16 02/28/25 07:18 BP 154/75 02/28/25 07:18 Pulse Ox 96 02/28/25 07:18 FiO2 Intake & Output 02/27/25 02/28/25 02/28/25 18:59 06:59 18:59 Intake Total 580 240 Balance 580 240 Intake: Oral 580 240 Other: Voiding Method Toilet # Voids 1 - Labs CBC & Chem 7: 02/27/25 05:42 02/27/25 05:42 Labs: Abnormal Lab Results - Last 24 Hours (Table) 02/27/25 02/27/25 02/28/25 Range/Units 16:34 20:34 07:22 POC Glucose (mg/dL) 170 H 228 H 139 H (70-110) mg/dL 02/28/25 Range/Units 12:39 POC Glucose (mg/dL) 129 H (70-110) mg/dL Microbiology - Last 24 Hours (Table) 02/25/25 15:08 Anaerobic Culture - Preliminary Hand - Right 02/25/25 15:06 Anaerobic Culture - Preliminary Hand - Right 02/24/25 16:22 Blood Culture - Preliminary Blood 02/25/25 15:06 Gram Stain - Final Hand - Right Wound Culture - Final Methicillin resist S. aureus 02/25/25 15:08 Gram Stain - Final Hand - Right Wound Culture - Final Methicillin resist S. aureus Assessment and Plan Time with Patient: Less than 30
--- NOTE | 2025-02-28 16:15 | P.PN ---
Subjective Progress Note Date: 02/28/25 Principal diagnosis: Reason for follow-up is right thumb/hand abscess and cellulitis Patient is a 74-year-old female with a past medical history significant for Diabetes Mellitus, Hyperlipidemia, Hypertension, Osteoarthritis (OA), Thyroid Disorder, patient also have a recent history of right trigger thumb release on 01/24/2025 now presenting the hospital with the right thumb as well as dorsum of the hand swelling redness concerning for right hand abscess and cellulitis in this patient is status post I&D and debridement of the right thumb and palm abscess. On today's evaluation that is 02/28/2025, the patient continues to be afebrile, the patient is on room air and breathing comfortably, the Pt denies having any chest pain or cough, the patient denies having any abdominal pain no vomiting or any diarrhea patient seem to have significant drainage from the right thumb done by the orthopedic surgeon this morning. No lab draw today local culture with MRSA blood culture has been negative anaerobe culture negative Objective - Vital Signs Vital signs: Vital Signs Temp 98.3 F 02/28/25 07:18 Pulse 90 02/28/25 07:18 Resp 16 02/28/25 07:18 BP 154/75 02/28/25 07:18 Pulse Ox 96 02/28/25 07:18 FiO2 Intake & Output 02/27/25 02/28/25 02/28/25 18:59 06:59 18:59 Intake Total 580 Balance 580 Intake: Oral 580 Other: Voiding Method Toilet # Voids 1 - Exam GENERAL DESCRIPTION: An elderly female up in bed in no distress RESPIRATORY SYSTEM: Unlabored breathing , decreased breath sounds at bases HEART: S1 S2 regular rate and rhythm , ABDOMEN: Soft , no tenderness EXTREMITIES: Right hand is currently dressed no drainage on the dressing - Labs CBC & Chem 7: 02/27/25 05:42 02/27/25 05:42 Labs: Abnormal Lab Results - Last 24 Hours (Table) 02/27/25 02/27/25 02/28/25 Range/Units 16:34 20:34 07:22 POC Glucose (mg/dL) 170 H 228 H 139 H (70-110) mg/dL 02/28/25 Range/Units 12:39 POC Glucose (mg/dL) 129 H (70-110) mg/dL Microbiology - Last 24 Hours (Table) 02/25/25 15:08 Anaerobic Culture - Preliminary Hand - Right 02/25/25 15:06 Anaerobic Culture - Preliminary Hand - Right 02/24/25 16:22 Blood Culture - Preliminary Blood 02/25/25 15:06 Gram Stain - Final Hand - Right Wound Culture - Final Methicillin resist S. aureus 02/25/25 15:08 Gram Stain - Final Hand - Right Wound Culture - Final Methicillin resist S. aureus Assessment and Plan (1) Cellulitis of thumb, right Current Visit: Yes Status: Acute Code(s): L03.011 - CELLULITIS OF RIGHT FINGER SNOMED Code(s): 07320348842581528 (2) Surgical site infection Current Visit: Yes Status: Acute Code(s): T81.49XA - INFECTION FOLLOWING A PROCEDURE, OTHER SURGICAL SITE, INIT SNOMED Code(s): 72047959 Plan: 1patient presented to hospital with right hand cellulitis in this patient who did have a history of right thumb trigger release on 01/24/2025 now presenting with increasing swelling or redness and some drainage at the base of the right thumb concerning for cellulitis and possible abscess and likely from gram- positive skin sara. 2patient with multiple antibiotic ALLERGIES that would limit the number of antibiotic safe to use 3-patient is status post surgical drainage and deep culture which are currently growing MRSA anaerobe culture negative blood culture negative 4-patient did have a PICC line placement plan is for 2-day course of IV vancomycin on discharge and close outpatient follow-up multiple question answered Dictation was produced using [employer] dictation software. please excuse any grammatical, word or spelling errors.
[2025-02-28] MEDS ORDERED: VANCOMYCIN 1,750 MG in SODIUM CHLORIDE 0.9% 500 ML 500 ML IVPB SCH (18:00)
[2025-03-02] MEDS ORDERED: LEVOTHYROXINE 125 MCG TAB PO SCH (06:30)
[2025-03-02] MEDS ORDERED: VANCOMYCIN TROUGH DUE 1 EACH MISC MISCELLANE ONE (17:00)
--- NOTE | 2025-03-14 16:43 | CDI ---
Documentation Clarification Form Date: 03/12/2025 10:24:00 PM From: Milind Garza Phone: Admit Date: 02/24/2025 02:22:00 PM Patient Name: Gudelia Cervantes Visit Number: [id number] Discharge Date: 02/28/2025 05:08:00 PM ATTENTION: The Clinical Documentation Specialists (CDI) and [facility] Coding Staff appreciate your assistance in clarifying documentation. Please respond to the clarification below the line at the bottom and electronically sign. The CDI & [facility] Coding staff will review the response and follow-up if needed. Please note: Queries are made part of the Legal Health Record. If you have any questions, please contact the author of this message via ITS. Doctor/Provider: Paramjit Nava A debridement of right thumb is documented on Operative note 02/25/25. Unfortunately, some required elements have not been documented. Additional clarification regarding the procedure is requested. History/Risk Factors:The patient is a 74-year-old female who underwent a right trigger thumb release approximately 4 to 5 weeks ago who presents with a 2 to 3-day history of increasing warmth, pain, and drainage from her thumb.The initial postoperative phase was uncomplicated.Her sutures had been removed 2 weeks ago Clinical Indicators:.Clinically noted of evidence of a abscess/cellulitis of the thumb. Treatment:The tourniquet was inflated to 250 mmHg.The previous volar incision about the right thumb along the palmar crease was then opened utilizing a scalpel.Blunt dissection was then made down to the level of the flexor tendon.The neurovascular bundles were gently retracted.I extended this incision proximatelly over the thenar eminence approximately 1 cm. The skin was incised sharply.Subcutaneous tissues were divided bluntly.Again the neurovascular bundles were gently retracted There was a small amount of purulence.Deep cultures were obtained.The flexor tendon appeared to be intact.Copious irrigation was then performed.The skin edges were then loosely reapproximated with simple 4-0 nylon sutures.A sterile dressing was applied.The tourniquet was deflated less than 15 minutes total tourniquet time. Please clarify the procedure performed: [ ] Excisional debridement (the removal of necrotic, devitalized tissue or slough by means of cutting away of tissue) Instrument: Nature of the tissue removed Appearance of the wound Depth of debridement [ x] Non-excisional debridement (the removal of necrotic, devitalized tissue or slough by means of flushing, brushing, or washing. (Irrigation) Instrument: __Syringe Nature of the tissue removed __necrotic tissue, purulent fluid Appearance of the wound __1 x 1 cm Depth of debridement to the flexor tendon sheath_ [ x] Other; please specify __wound was copiously irrigated with a bulb syringe Five elements required for accurate and compliant documentation of a debridement: -Technique used (e.g., excisional, excised, cutting, brushing, jet lavage etc.) -Instrument(s) used (e.g., scalpel, curette, etc.) -Nature of the tissue removed (e.g., necrotic, devitalized tissues, non-viable tissue, etc.) -Appearance and size of the wound (e.g., down to fresh bleeding tissue, 7cm x 10cm, etc.) -Depth of the debridement* (e.g., skin, subcutaneous tissue, fascia, muscle, bone, etc.) MATTHEWD
== END 2025-02-28 17:08 | disposition home or self-care (01) | DRG 858 ==
LOC: OR 13:49 → 4SSUR 14:22 → 1SOBS 18:56 → 5NMEDONC 02-27 17:52
PROVIDERS: ADMIT Orthopaedic Surgery; ATTEND Orthopaedic Surgery
PROC: 0JDJ0ZZ Extraction of Right Hand Subcutaneous Tissue and Fascia, Open Approach (ICD-10-PCS; principal; 2025-02-25 14:40)
DX: T81.41XA Infection following a procedure, superficial incisional surgical site, initial encounter (principal); B95.62 Methicillin resistant Staphylococcus aureus infection as the cause of diseases classified elsewhere; E03.9 Hypothyroidism, unspecified; E11.9 Type 2 diabetes mellitus without complications; E78.5 Hyperlipidemia, unspecified; I10 Essential (primary) hypertension; L03.011 Cellulitis of right finger; Y84.8 Other medical procedures as the cause of abnormal reaction of the patient, or of later complication, without mention of misadventure at the time of the procedure; Z79.890 Hormone replacement therapy; Z79.84 Long term (current) use of oral hypoglycemic drugs; M65.311 Trigger thumb, right thumb; Z79.899 Other long term (current) drug therapy; Z87.891 Personal history of nicotine dependence; Z88.1 Allergy status to other antibiotic agents; Z88.2 Allergy status to sulfonamides
CPT/HCPCS: 80048; 80202; 82565; 83036; 85025; 85652; 86140; 87040; 87070; 87075; 87077; 87186; 87205; 96361; 96365; 96366; 96375; 99285